=== PATIENT | male | born 1965 | race Caucasian/White ===

== ENCOUNTER 2020-08-17 02:20 | Observation (INO) | payer MEDICAID, SELFPAY ==
[~2020-08-17] VITALS: Ht 170.2 cm; Wt 78.9 kg
[~2020-08-17 02:20] MED LIST: ATOR20TA PO; FURO-572 PO; METO25TE2 PO; RIVA20TA PO
[2020-08-17 02:25] VITALS: BP 152/116
[2020-08-17 04:53] LABS: BASOPHILS % (AUTO) 0.4 % (0.0-2.0); EOSINOPHILS # (AUTO) 0.1 K/uL (0-0.4); EOSINOPHILS % (AUTO) 1.5 % (0.0-4.0); HEMATOCRIT 39.2 % (36-52); LYMPHOCYTES # (AUTO) 2.3 K/uL (2.0-11.5); MEAN CORPUSCULAR HEMOGLOBIN 29 pg (27-31); MEAN CORPUSCULAR HGB CONC 33 g/dL (33-37); MEAN CORPUSCULAR VOLUME 86.3 fL (80-94); MONOCYTES # (AUTO) 0.3 K/uL (0.8-1.0); MONOCYTES % (AUTO) 3.6 % (1.7-9.3); NEUTROPHILS # (AUTO) 6.8 K/uL (1.8-7.7); NEUTROPHILS % (AUTO) 70.5 % (42.2-75.2); PLATELET COUNT (AUTO) 285 K/uL (140-450); RED BLOOD CELL COUNT(AUTO) 4.54 MIL/uL (4.20-6.10); RED CELL DISTRIBUTION WIDTH 16.5 % (11.6-13.7); WHITE BLOOD COUNT (AUTO) 9.6 K/uL (4.8-10.8)
[2020-08-17 05:19] LABS: PROTHROMBIN TIME 10.7 secs (10.8-13.4)
[2020-08-17 05:20] LABS: ALBUMIN 3.5 g/dL (3.4-5.0); CARBON DIOXIDE 22.5 mmol/L (21-32); CREATININE 0.9 mg/dL (0.6-1.3); POTASSIUM 4.5 mmol/L (3.5-5.1); TOTAL BILIRUBIN 0.8 mg/dL (0.0-1.0)
[2020-08-17] MEDS ORDERED: FUROSEMIDE 40 MG/4 ML VIAL IVP ONE (05:45)
[2020-08-17] MEDS ORDERED: ASPIRIN 325 MG TAB PO ONE (05:45)
[2020-08-17] MEDS ORDERED: ONDANSETRON 4 MG/2 ML VIAL IVP ONE (05:45)
[2020-08-17 08:10] VITALS: BP 147/102
[2020-08-17] MEDS ORDERED: POTASSIUM CHLORIDE 10 MEQ TABER PO PRN (10:30)
[2020-08-17] MEDS ORDERED: ACETAMINOPHEN 325 MG TAB PO PRN (10:30)
[2020-08-17] MEDS ORDERED: ONDANSETRON 4 MG/2 ML VIAL IM/IVP PRN (10:30)
[2020-08-17] MEDS ORDERED: DOCUSATE SODIUM 100 MG GELCAP PO PRN (10:30)
[2020-08-17] MEDS ORDERED: HYDROcodone/APAP 7.5/325 MG 1 TAB PO PRN (10:30)
[2020-08-17 11:10] LABS: MAGNESIUM 2.1 mg/dL (1.8-2.4); PHOSPHORUS 4.4 mg/dL (2.5-4.9)
[2020-08-17 12:00] VITALS: BP 143/92
[2020-08-17 16:00] VITALS: BP 126/85
[2020-08-17 20:00] VITALS: BP 151/103
[2020-08-17] MEDS ORDERED: ATORVASTATIN 20 MG TAB PO SCH (21:00)
[2020-08-18] VITALS: BP 142/101
[2020-08-18 04:00] VITALS: BP 136/94
[2020-08-18 06:24] LABS: ANION GAP 11.3 (8-16); CARBON DIOXIDE 25.7 mmol/L (21-32)
[2020-08-18 06:32] LABS: BASOPHILS % (AUTO) 0.3 % (0.0-2.0); EOSINOPHILS # (AUTO) 0.1 K/uL (0-0.4); HEMATOCRIT 40.5 % (36-52); HEMOGLOBIN 13.2 g/dL (12.0-18.0); LYMPHOCYTES # (AUTO) 3.3 K/uL (2.0-11.5); LYMPHOCYTES % (AUTO) 29.3 % (20.5-51.1); MEAN CORPUSCULAR HEMOGLOBIN 28 pg (27-31); MEAN CORPUSCULAR HGB CONC 33 g/dL (33-37); MEAN CORPUSCULAR VOLUME 87.1 fL (80-94); MONOCYTES # (AUTO) 0.5 K/uL (0.8-1.0); NEUTROPHILS # (AUTO) 7.3 K/uL (1.8-7.7); NEUTROPHILS % (AUTO) 65.4 % (42.2-75.2); PLATELET COUNT (AUTO) 281 K/uL (140-450); RED BLOOD CELL COUNT(AUTO) 4.65 MIL/uL (4.20-6.10); RED CELL DISTRIBUTION WIDTH 15.9 % (11.6-13.7); WHITE BLOOD COUNT (AUTO) 11.2 K/uL (4.8-10.8)
[2020-08-18 08:00] VITALS: BP 138/110
[2020-08-18] MEDS ORDERED: FUROSEMIDE 40 MG/4 ML VIAL IVP SCH (09:00)
[2020-08-18] MEDS ORDERED: RIVAROXABAN 10 MG TAB PO SCH (09:00)
[2020-08-18] MEDS ORDERED: METOPROLOL SUCCINATE 50 MG TABER PO SCH (09:00)
[2020-08-18 12:00] VITALS: BP 134/80
[2020-08-18] MEDS ORDERED: RIVA20TA PO (15:56)
[2020-08-18] MEDS ORDERED: METO25TE2 PO (15:56)
[2020-08-18] MEDS ORDERED: ATOR20TA PO (15:56)
[2020-08-18] MEDS ORDERED: FURO-572 PO (15:56)
[2020-08-18 16:00] VITALS: BP 129/89
[2020-08-18 16:28] LABS: BARBITURATE, URINE NEGATIVE ng/ml (NEG <=200)
[2020-08-18 16:29] LABS: BENZODIAZEPINE, URINE NEGATIVE ng/mL (NEG <=200); CANNABINOID, URINE NEGATIVE ng/mL (NEG <=50); COCAINE, URINE NEGATIVE ng/mL (NEG <=300); OPIATE, URINE NEGATIVE ng/mL (NEG <=2000); PHENCYCLIDINE SCREEN,URINE NEGATIVE ng/mL (NEG <=25)
== END 2020-08-18 18:15 | disposition home or self-care (01) ==
LOC: MED 02:20 → MTU 06:58
PROVIDERS: ADMIT Emergency Medicine; ATTEND Emergency Medicine
DX: I21.4 Non-ST elevation (NSTEMI) myocardial infarction (principal); Z20.822 Contact with and (suspected) exposure to COVID-19; I11.0 Hypertensive heart disease with heart failure; I50.20 Unspecified systolic (congestive) heart failure; G92 Toxic encephalopathy; E86.0 Dehydration; E83.51 Hypocalcemia; R73.9 Hyperglycemia, unspecified; F15.10 Other stimulant abuse, uncomplicated; Z91.19 Patient's noncompliance with other medical treatment and regimen; Z79.01 Long term (current) use of anticoagulants; Z79.899 Other long term (current) drug therapy
CPT/HCPCS: 36415; 71045; 80048; 80053; 80305; 83735; 83880; 84100; 84484; 85025; 85610; 85730; 87081; 87426; 96374; 96375; 96376; 99284; G0378; J1940; J2405

== ENCOUNTER 2020-12-31 21:50 | Inpatient (IN) | payer MEDICAID, SELFPAY ==
[~2020-12-31] VITALS: Ht 170.2 cm; Wt 79.4 kg
[2020-12-31 21:55] VITALS: BP 123/100
--- NOTE | 2020-12-31 21:55 | NUR ---
TO TENT AMBULATORY
[2020-12-31] MEDS ORDERED: ASPIRIN 325 MG TAB PO ONE (22:20)
[2020-12-31] MEDS ORDERED: NITROGLYCERIN 0.4 MG TAB SL ONE ×2 (22:20→23:37)
[2020-12-31 22:37] LABS: BASOPHILS # (AUTO) 0.1 K/uL (0.00-0.22); BASOPHILS % (AUTO) 0.5 % (0.0-2.0); EOSINOPHILS % (AUTO) 0.3 % (0.0-4.0); HEMATOCRIT 42.5 % (36-52); HEMOGLOBIN 13.9 g/dL (12.0-18.0); LYMPHOCYTES # (AUTO) 2.5 K/uL (2.0-11.5); MEAN CORPUSCULAR HEMOGLOBIN 29 pg (27-31); MEAN CORPUSCULAR HGB CONC 33 g/dL (33-37); MEAN CORPUSCULAR VOLUME 89.2 fL (80-94); MONOCYTES # (AUTO) 0.5 K/uL (0.8-1.0); MONOCYTES % (AUTO) 4.1 % (1.7-9.3); NEUTROPHILS % (AUTO) 76.1 % (42.2-75.2); PLATELET COUNT (AUTO) 410 K/uL (140-450); RED BLOOD CELL COUNT(AUTO) 4.77 MIL/uL (4.20-6.10); RED CELL DISTRIBUTION WIDTH 14.5 % (11.6-13.7); WHITE BLOOD COUNT (AUTO) 13.2 K/uL (4.8-10.8)
[2020-12-31 22:58] LABS: ALBUMIN 3.5 g/dL (3.4-5.0); ANION GAP 15.2 (8-16); CARBON DIOXIDE 23.6 mmol/L (21-32); CREATININE 1.2 mg/dL (0.6-1.3); POTASSIUM 3.8 mmol/L (3.5-5.1); TOTAL BILIRUBIN 1.8 mg/dL (0.0-1.0)
--- NOTE | 2020-12-31 23:10 | NUR ---
PT BIB SELF FOR C/C SOB X 4 DAYS. PT DENIES CHEST PAIN. REPORTS RECENT DX OF HEART FAILURE "A FEW MONTHS AGO." PT STATES, "THE DOCTOR SAID MY HEART IS FUNCTIONING AT LIKE 25% ONLY." PT ABLE TO TALK IN COMPLETE SENTENCES. A&O X 4. MED HX: CHF ALLERGIES: NKA
[2020-12-31] MEDS ORDERED: ASPIRIN 325 MG TAB ONE (23:37)
--- NOTE | 2020-12-31 23:56 | NUR ---
SPOKE WITH KIKE FROM [facility]. PROVIDED CLINICAL DATA REQUESTED.
[2021-01-01] MEDS ORDERED: POTASSIUM CHLORIDE 10 MEQ TABER PO PRN (01:00)
[2021-01-01] MEDS ORDERED: MORPHINE SULFATE 2 MG/ML SYR IVP PRN (01:00)
[2021-01-01] MEDS ORDERED: ACETAMINOPHEN 325 MG TAB PO PRN (01:00)
[2021-01-01] MEDS ORDERED: DOCUSATE SODIUM 100 MG GELCAP PO PRN (01:00)
[2021-01-01] MEDS ORDERED: ONDANSETRON 4 MG/2 ML VIAL IM/IVP PRN (01:00)
[2021-01-01] MEDS ORDERED: SODIUM PHOS / POTASSIUM PHOS 1 PKT PDR PO PRN (01:00)
[2021-01-01] MEDS ORDERED: NITROGLYCERIN 0.4 MG TAB SL PRN (01:00)
[2021-01-01] MEDS ORDERED: MAGNESIUM OXIDE 400 MG TAB PO PRN (01:00)
--- NOTE | 2021-01-01 01:15 | NUR ---
PT USED URINAL AT BEDSIDE. 350 CC CLEAR, YELLOW URINE.
[2021-01-01 01:21] LABS: MAGNESIUM 1.9 mg/dL (1.8-2.4); PHOSPHORUS 3.3 mg/dL (2.5-4.9)
[2021-01-01] MEDS: NACL 0.9% 1,000 ML IV SCH (01:48)
[2021-01-01 02:05] LABS: BARBITURATE, URINE NEGATIVE ng/ml (NEG <=200); BENZODIAZEPINE, URINE NEGATIVE ng/mL (NEG <=200); CANNABINOID, URINE NEGATIVE ng/mL (NEG <=50); COCAINE, URINE NEGATIVE ng/mL (NEG <=300); OPIATE, URINE NEGATIVE ng/mL (NEG <=2000); PHENCYCLIDINE SCREEN,URINE NEGATIVE ng/mL (NEG <=25)
--- NOTE | 2021-01-01 02:05 | NUR ---
Patient appears to be resting comfortably in bed, EYES CLOSED. Respirations even and unlabored. DENIES PAIN OR DISCOMFORT AT THIS TIME. LIGHTS DIMMED FOR COMFORT.
--- NOTE | 2021-01-01 02:11 | NUR ---
CRITICAL LAB RECIEVED: TROPONIN 0.237. KATHERINE DEL CID, AWAITING RESPONSE. NOTIFIED BINH RT FOR EKG, WILL COME TO BEDSIDE.
--- NOTE | 2021-01-01 02:37 | NUR ---
CALLED AND SPOKE WITH MD GONZALEZ, UPDATED REGARDING TROPONIN LEVELS. DOES NOT WANT A REPEAT EKG. NO NEW ORDERS AT THIS TIME.
--- NOTE | 2021-01-01 04:08 | NUR ---
Patient appears to be resting comfortably in bed, EYES CLOSED. Vital Signs within normal limits. Respirations even and unlabored. DENIES PAIN OR DISCOMFORT AT THIS TIME. WILL CONTINUE TO MONITOR.
[2021-01-01] MEDS ORDERED: FUROSEMIDE 40 MG/4 ML VIAL IVP SCH (04:30)
--- NOTE | 2021-01-01 05:58 | NUR ---
Patient appears to be resting comfortably in bed EYES CLOSED. Vital Signs within normal limits. Respirations even and unlabored. WILL CONTINUE TO MONITOR.
--- NOTE | 2021-01-01 06:20 | NUR ---
LAB AT BEDSIDE.
--- NOTE | 2021-01-01 06:41 | NUR ---
PROVIDED PT BEDSIDE URINAL. 200 CC CLEAR, YELLOW URINE NOTED.
[2021-01-01 06:53] LABS: BASOPHILS % (AUTO) 0.4 % (0.0-2.0); EOSINOPHILS # (AUTO) 0.1 K/uL (0-0.4); EOSINOPHILS % (AUTO) 0.5 % (0.0-4.0); HEMATOCRIT 39.5 % (36-52); LYMPHOCYTES # (AUTO) 2.3 K/uL (2.0-11.5); LYMPHOCYTES % (AUTO) 20.2 % (20.5-51.1); MEAN CORPUSCULAR HEMOGLOBIN 29 pg (27-31); MEAN CORPUSCULAR HGB CONC 33 g/dL (33-37); MEAN CORPUSCULAR VOLUME 88.3 fL (80-94); MONOCYTES # (AUTO) 0.6 K/uL (0.8-1.0); MONOCYTES % (AUTO) 5.4 % (1.7-9.3); NEUTROPHILS # (AUTO) 8.5 K/uL (1.8-7.7); NEUTROPHILS % (AUTO) 73.5 % (42.2-75.2); PLATELET COUNT (AUTO) 350 K/uL (140-450); RED BLOOD CELL COUNT(AUTO) 4.47 MIL/uL (4.20-6.10); RED CELL DISTRIBUTION WIDTH 14.6 % (11.6-13.7); WHITE BLOOD COUNT (AUTO) 11.6 K/uL (4.8-10.8)
--- NOTE | 2021-01-01 07:17 | NUR ---
REPORT GIVEN TO KALYN WALTERS FOR CONTINUITY OF CARE.
--- NOTE | 2021-01-01 08:03 | NUR ---
Patient given breakfast tray, noted sitting up in bed eating. All needs met at this time.
[2021-01-01] MEDS ORDERED: FUROSEMIDE 20 MG TAB PO SCH (09:00)
[2021-01-01] MEDS: ASPIRIN 81 MG TAB.CHEW PO SCH (09:10)
[2021-01-01] MEDS: lisinopriL 5 MG TAB PO SCH (09:11)
[2021-01-01] MEDS: PANTOPRAZOLE 40 MG TABEC PO SCH (09:11)
[2021-01-01] MEDS: RIVAROXABAN 10 MG TAB PO SCH (09:31)
--- NOTE | 2021-01-01 10:05 | NUR ---
Patient appears to be resting comfortably in bed with eyes closed. Respirations even and unlabored. Denies pain or discomfort at this time, all needs met. Lights dimmed for comfort.
[2021-01-01 11:29] LABS: ANION GAP 16.8 (8-16); CREATININE 1.1 mg/dL (0.6-1.3); POTASSIUM 3.8 mmol/L (3.5-5.1)
--- NOTE | 2021-01-01 13:30 | NUR ---
Patient provided with lunch tray, patient sitting up right in bed eating. All needs met at this time.
--- NOTE | 2021-01-01 18:00 | NUR ---
RECEIVED REPORT FROM ER NURSE OVER THE PHONE AWAITING FOR PATIENT ARRIVAL.
--- NOTE | 2021-01-01 18:00 | NUR ---
Patient will be admitted to care of Dr. Escobedo. Admited to TELE. Will go to room 104A. Belongings list completed. Report to Cuong MCCAIN.
[2021-01-01 18:10] VITALS: BP 112/81
--- NOTE | 2021-01-01 18:10 | NUR ---
RECEIVED PATIENT FROM ER NURSE VIA ALEJANDRA. PT ADMITTED FOR N-STEMI. PT IS AOX4, ABLE TO MAKE NEEDS KNOWN. RESPIRATIONS EVEN AND UNLABORED. NO S/S OF RESPIRATORY DISTRESS NOTED. SKIN IS WARM, DRY, AND INTACT. IV SITE ON RAC 20 G INFUSING FLUIDS WELL. INTACT AND PATENT. ABD SOFT, FLAT, AND NON-TENDER. BOWEL SOUNDS ACTIVE IN ALL QUADRANTS. COMPLAINS OF 4/10 CHEST PAIN BUT IT IS TOLERABLE. PLAN OF CARE DISCUSSED. SAFETY PRECAUTIONS IN PLACE. CALL LIGHT WITHIN REACH. WILL CONTINUE TO MONITOR.
--- NOTE | 2021-01-01 19:20 | NUR ---
ENDORSED TO CONTRACTS ADVISOR NURSE FOR CONTINUITY OF CARE. PT IS STABLE.
--- NOTE | 2021-01-01 19:21 | NUR ---
RECEIVED BEDSIDE REPORT FROM DAY RN. PT IS AAOX4 IS AMBULATORY AND ABLE TO MAKE NEEDS KNOWN. RESPIRATIONS ARE EQUAL AND UNLABORED ON ROOM AIR. DX CHF EXACERBATION. PT REPORTS CP STARTED YESTERDAY CURRENTLY TOLERABLE . NO EDEMA NOTED. PT HX METH ABUSE. ECHO 05/2020 EF 10-15%. ECHO PENDING FOR TOMORROW. IV ON RAC NS INFUSING AT 20ML/H. SKIN IS INTACT. POC DISCUSSED WITH PATIENT. CALL LIGHT IS WITHIN REACH. WILL CONTINUE TO MONITOR.
--- NOTE | 2021-01-01 19:35 | NUR ---
RECEIVED BEDSIDE ENDORSEMENT FROM AM SHIFT RN. PT IS A&OX4, NS @ 20 ML/HR, CARDIAC DIET, RAC 20G , NO SIGNS OF DISTRESS AT THIS MOMENT, SAFETY MEASURES IN PLACE, ON ROOM AIR, PT STATES CHEST PAIN IS TOLERABLE, TROPONIN TRENDING DOWN @ 0.181, WILL CONTINUE TO MONITOR, CALL LIGHT WITHIN REACH.
[2021-01-01 20:00] VITALS: BP 111/85
[2021-01-01] MEDS ORDERED: ATORVASTATIN 20 MG TAB PO SCH (21:00)
[2021-01-01 21:52] LABS: APPEARANCE,URINE CLEAR (CLEAR); BILIRUBIN,URINE NEGATIVE (NEGATIVE); BLOOD, URINE NEGATIVE (NEGATIVE); COLOR,URINE YELLOW (YELLOW); LEUKOCYTE ESTERASE ,URINE NEGATIVE (NEGATIVE); NITRITE, URINE NEGATIVE (NEGATIVE); PH,URINE 5.5 (5.0-9.0); UGLUCOSE NEGATIVE (NEGATIVE)
--- NOTE | 2021-01-01 22:52 | NUR ---
PATIENT IS IN BED, KEPT COMFORTABLE, ON ROOM AIR, SAFETY MEASURES IN PLACE, CALL LIGHT WITHIN REACH, DENIES PAIN AT THE MOMENT, WILL CONTINUE TO MONITOR, AND NOTIFY MD NEEDED.
[2021-01-02] VITALS: BP 116/86
--- NOTE | 2021-01-02 00:23 | NUR ---
PATIENT IN BED, KEPT COMFORTABLE, DENIES PAIN, VITAL SIGNS STABLE TEMP: 97.3, O2 SAT 99%, HR 84, BP 116/86, RR 20, CALL LIGHT WITHIN REACH, WILL CONTINUE TO MONITOR PT, SAFETY MEASURES IN PLACE.
[2021-01-02] MEDS: NACL 0.9% 1,000 ML IV SCH (01:00)
--- NOTE | 2021-01-02 02:17 | NUR ---
ROUNDS MADE. PT OBSERVED RESTING IN BED APPEARS TO BE ASLEEP. CHEST RISE AND FALL NOTED. CALL LIGHT WITHIN REACH. WILL CONTINUE TO MONITOR.
[2021-01-02 04:00] VITALS: BP 116/89
--- NOTE | 2021-01-02 04:00 | NUR ---
VITAL SIGNS ARE WITHIN NORMAL LIMITS. ALL NEEDS MET. CALL LIGHT IS WITHIN REACH.
--- NOTE | 2021-01-02 05:00 | NUR ---
ROUNDS MADE. PT APPEARS TO BE ASLEEP. CHEST RISE AND FALL NOTED. CALL LIGHT IS WITHIN REACH.
[2021-01-02 07:27] LABS: BASOPHILS % (AUTO) 0.4 % (0.0-2.0); EOSINOPHILS # (AUTO) 0.1 K/uL (0-0.4); EOSINOPHILS % (AUTO) 1.1 % (0.0-4.0); HEMATOCRIT 39.9 % (36-52); HEMOGLOBIN 13.2 g/dL (12.0-18.0); LYMPHOCYTES # (AUTO) 2.6 K/uL (2.0-11.5); LYMPHOCYTES % (AUTO) 24.1 % (20.5-51.1); MEAN CORPUSCULAR HEMOGLOBIN 29 pg (27-31); MEAN CORPUSCULAR HGB CONC 33 g/dL (33-37); MEAN CORPUSCULAR VOLUME 88.4 fL (80-94); MONOCYTES # (AUTO) 0.6 K/uL (0.8-1.0); MONOCYTES % (AUTO) 5.7 % (1.7-9.3); NEUTROPHILS # (AUTO) 7.5 K/uL (1.8-7.7); NEUTROPHILS % (AUTO) 68.7 % (42.2-75.2); PLATELET COUNT (AUTO) 329 K/uL (140-450); RED BLOOD CELL COUNT(AUTO) 4.52 MIL/uL (4.20-6.10); RED CELL DISTRIBUTION WIDTH 14.4 % (11.6-13.7); WHITE BLOOD COUNT (AUTO) 10.9 K/uL (4.8-10.8)
--- NOTE | 2021-01-02 07:30 | NUR ---
GAVE SHIFT REPORT TO AM SHIFT RN, PT ENDORSED IN STABLE CONDITION.
--- NOTE | 2021-01-02 07:32 | NUR ---
RECEIVED PATIENT REPORT FOR CONTINUITY OF CARE. PT IS AOX4, ABLE TO MAKE NEEDS KNOWN. RESPIRATIONS EVEN AND UNLABORED. NO S/S OF RESPIRATORY DISTRESS NOTED. SKIN IS WARM, DRY, AND INTACT. IV SITE ON RAC 20 G INFUSING FLUIDS WELL. INTACT AND PATENT. DENIES PAIN AT THE MOMENT. PLAN OF CARE DISCUSSED. SAFETY PRECAUTIONS IN PLACE. CALL LIGHT WITHIN REACH. WILL CONTINUE TO MONITOR.
[2021-01-02 08:00] VITALS: BP 133/97
[2021-01-02 08:47] LABS: ANION GAP 15.2 (8-16); CARBON DIOXIDE 23.4 mmol/L (21-32); CREATININE 1.1 mg/dL (0.6-1.3); POTASSIUM 3.6 mmol/L (3.5-5.1)
[2021-01-02] MEDS: ASPIRIN 81 MG TAB.CHEW PO SCH (09:14)
[2021-01-02] MEDS: lisinopriL 5 MG TAB PO SCH (09:14)
[2021-01-02] MEDS: RIVAROXABAN 10 MG TAB PO SCH (09:22)
[2021-01-02] MEDS: FUROSEMIDE 40 MG/4 ML VIAL IVP SCH (09:22)
[2021-01-02] MEDS: PANTOPRAZOLE 40 MG TABEC PO SCH (09:22)
--- NOTE | 2021-01-02 09:50 | NUR ---
ALL SCHEDULED MEDS GIVEN. PT IS STABLE. NO DISTRESS NOTED. WILL CONTINUE TO MONITOR.
--- NOTE | 2021-01-02 11:45 | NUR ---
CHECKED ON PATIENT. PT IS STABLE. NO DISTRESS NOTED. WILL CONTINUE TO MONITOR.
[2021-01-02 12:00] VITALS: BP 121/94
--- NOTE | 2021-01-02 13:30 | NUR ---
CHECKED ON PATIENT. PT IS STABLE. NO S/S DISTRESS NOTED. WILL CONTINUE TO MONITOR.
--- NOTE | 2021-01-02 15:45 | NUR ---
CHECKED ON PATIENT. PT IS STABLE. NO DISTRESS NOTED. WILL CONTINUE TO MONITOR.
[2021-01-02 16:00] VITALS: BP 117/88
--- NOTE | 2021-01-02 17:50 | NUR ---
CHECKED ON PATIENT. PT IS ASLEEP. NO DISTRESS NOTED. WILL CONTINUE TO MONITOR.
--- NOTE | 2021-01-02 19:40 | NUR ---
ENDORSED TO FEATHEREDGER AND REDUCER MACHINE NURSE FOR CONTINUITY OF CARE. PT IS STABLE.
--- NOTE | 2021-01-02 19:45 | NUR ---
RECEIVED REPORT FROM DAY SHIFT RN PT AAOX4 FOLLOWING COMMANDS. PT AMB IN ROOM, DENIES CP/SOB, NSR ON MONITOR. PALPABLE PULSES TO PERIPHERAL EXTREMITIES. LUNGS CLEAR TO AUSCULTATION. DIMINISHED @ BASES. ABD SOFT NON DISTENDED. ACTIVE BOWEL SOUNDS. DENIES N/V/D. PT VOIDING IN URINAL. SKIN INTACT. IV TO R FA IN PLACE PATENT. BED LOCKED IN LOWEST POSITION. SAFETY PRECAUTIONS IN PLACE. CALL LIGHT WITHIN REACH.
[2021-01-02 20:00] VITALS: BP 123/50
[2021-01-02] MEDS: HYDROcodone/APAP 5/325 MG 1 TAB TAB PO PRN (21:02)
[2021-01-03] VITALS: BP 119/85
[2021-01-03] MEDS: NACL 0.9% 1,000 ML IV SCH (01:00)
--- NOTE | 2021-01-03 01:17 | NUR ---
PT HAS EYES CLOSED; AROUSABLE, NO S/S OF DISTRESS NOTED. WILL CONTINUE TO OBSERVE.
--- NOTE | 2021-01-03 03:01 | NUR ---
PT HAS EYES CLOSED; AROUSABLE DENIES PAIN. NO S/S OF ACUTE DISTRESS. WILL CONTINUE TO OBSERVE
[2021-01-03 04:00] VITALS: BP 109/80
--- NOTE | 2021-01-03 05:41 | NUR ---
PT HAS EYES CLOSED; AROUSABLE DENIES PAIN. WILL CONTINUE TO OBSERVE
[2021-01-03 07:07] LABS: ANION GAP 8.5 (8-16); CARBON DIOXIDE 30.1 mmol/L (21-32); CREATININE 1.1 mg/dL (0.6-1.3); POTASSIUM 3.6 mmol/L (3.5-5.1)
[2021-01-03 07:19] LABS: BASOPHILS % (AUTO) 0.4 % (0.0-2.0); EOSINOPHILS # (AUTO) 0.2 K/uL (0-0.4); EOSINOPHILS % (AUTO) 2.5 % (0.0-4.0); HEMATOCRIT 40.1 % (36-52); HEMOGLOBIN 13.2 g/dL (12.0-18.0); LYMPHOCYTES # (AUTO) 2.9 K/uL (2.0-11.5); MEAN CORPUSCULAR HEMOGLOBIN 29 pg (27-31); MEAN CORPUSCULAR HGB CONC 33 g/dL (33-37); MEAN CORPUSCULAR VOLUME 87.7 fL (80-94); MONOCYTES # (AUTO) 0.5 K/uL (0.8-1.0); MONOCYTES % (AUTO) 5.6 % (1.7-9.3); NEUTROPHILS # (AUTO) 5.9 K/uL (1.8-7.7); NEUTROPHILS % (AUTO) 61.5 % (42.2-75.2); PLATELET COUNT (AUTO) 301 K/uL (140-450); RED BLOOD CELL COUNT(AUTO) 4.57 MIL/uL (4.20-6.10); RED CELL DISTRIBUTION WIDTH 14.7 % (11.6-13.7); WHITE BLOOD COUNT (AUTO) 9.6 K/uL (4.8-10.8)
--- NOTE | 2021-01-03 07:31 | NUR ---
REPORT GIVEN TO DAY SHIFT FOR CONTINUITY OF CARE
[2021-01-03 08:00] VITALS: BP 125/97
--- NOTE | 2021-01-03 08:00 | NUR ---
RECEIVED REPORT FROM GLOVE CUTTER FOR CONTINUITY OF CARE. INITIAL ASSESSMENT INITIATED. PATIENT ASLEEP BUT AROUSABLE, NOT IN DISTRESS NOTED. WITH IVF ON GOING AND INFUSING WELL. ON MONITOR SHOWS SR. DENIES PAIN AT THIS TIME. NEEDS ATTENDED. WILL CONTINUE TO MONITOR.
[2021-01-03] MEDS: ASPIRIN 81 MG TAB.CHEW PO SCH (08:37)
[2021-01-03] MEDS: lisinopriL 5 MG TAB PO SCH (08:38)
[2021-01-03] MEDS: FUROSEMIDE 40 MG/4 ML VIAL IVP SCH (08:38)
[2021-01-03] MEDS: PANTOPRAZOLE 40 MG TABEC PO SCH (08:38)
[2021-01-03] MEDS: RIVAROXABAN 10 MG TAB PO SCH (08:40)
[2021-01-03 12:00] VITALS: BP 106/83
[2021-01-03 16:00] VITALS: BP 109/80
--- NOTE | 2021-01-03 19:00 | NUR ---
REPORT GIVEN AT BEDSIDE TO THE NIGHT NURSE FOR CONTINUITY OF CARE. PATIENT IN STABLE CONDITION.
[2021-01-03 20:39] VITALS: BP 113/70
--- NOTE | 2021-01-03 22:08 | NUR ---
I RECEIVED PT IN BED FROM OUT GOING NURSE , HE A LERT ORIENTED , DENIES PAIN , VSS , ON RA CLEAR LUNGS , SL INTACT , SKIN INTACT .
[2021-01-04] VITALS (24 sets, daily range): BP systolic 69–146; BP diastolic 47–104
--- NOTE | 2021-01-04 01:01 | NUR ---
PT IS SLEEPING WELL NO S/S DISCOMFORT
[2021-01-04] MEDS: NACL 0.9% 1,000 ML IV SCH (01:31)
[2021-01-04] MEDS: HYDROcodone/APAP 5/325 MG 1 TAB TAB PO PRN (02:36)
--- NOTE | 2021-01-04 06:23 | NUR ---
PT SLEPT WELL VSS .
--- NOTE | 2021-01-04 06:43 | NUR ---
CARDIOPULMONARY ARREST Rafa GERBER, SLEDGER ATTENDING
--- NOTE | 2021-01-04 06:50 | NUR ---
INTUBATION ASSIST PATIENT SUCCESSFULLY INTUBATED BY DR. AILEEN VELOZ WITH AN ENDOTRACHEAL TUBE #8.0 SECURED AT 22cm TEETH/GUM LINE WITH ANCHOR FAST CUFF PRESSURE INJECTED WITH 8cc AIR VIA A 10cc SYRINGE PLACEMENT CONFIRMATION VIA CO2 DETECTOR (YELLOW) AUSCULTATION BT FOREMENTIONED ERMD TO BILATERAL LUNGS APEX TO MID AND ABDOMINAL CXR TO FOLLOW
--- NOTE | 2021-01-04 06:58 | NUR ---
TRANSFERRED TO ICU-7 SUPPLEMENTAL OXYGEN AT 15 LPM VIA E-TANK (ADEQUATE PSI) TO AMBU BAG/ENDOTRACHEAL TUBE BAG DEPRESSION EVERY SIX SECONDS TOLERATED TRANSFER WELL WITHOUT ADVERSE REACTIONS NOTED
--- NOTE | 2021-01-04 07:05 | NUR ---
AT 0630 PT COULD NOT BREATH HE WAS CHOKING AND HE TURNED ON HIS CALL LIGHT SO I WENT THE ROOM AND I FOUD HIMCHOCKINH HOLDING HIS NECK I I RAN AND GOT A NC CANNULLA TUBING AND PUT HIM ON O2 AND I CALLED [facility]PONSE , AND A DOCTOR WAS IN THE [place]NTIVER[place] WAY COMING FROM A CODE [facility]UE AND HE WENT IN AND HE STAA RTED COMPRESSIONS A TEAM BLUE CAME AND STARTED RESURSTATING HIM UNTI HE GOT A PULSE AND HE WAS TRANSFFERED TO ICU . I NOTIFIED HIS HARMAN CEDEÑO AT [phone] AND THE CHARGE NURSE NOTIFIED THE DOCTOR
[2021-01-04] MEDS ORDERED: NOREPINEPHRINE 4 MG/4 ML VIAL IV ONE (07:18)
--- NOTE | 2021-01-04 07:20 | NUR ---
REPORT GIVEN TO ICU NURSE
[2021-01-04 07:23] LABS: BASOPHILS % (AUTO) 0.3 % (0.0-2.0); EOSINOPHILS # (AUTO) 0.2 K/uL (0-0.4); HEMATOCRIT 42.8 % (36-52); HEMOGLOBIN 14.2 g/dL (12.0-18.0); LYMPHOCYTES % (AUTO) 29.1 % (20.5-51.1); MEAN CORPUSCULAR HEMOGLOBIN 29 pg (27-31); MEAN CORPUSCULAR HGB CONC 33 g/dL (33-37); MEAN CORPUSCULAR VOLUME 87.4 fL (80-94); MONOCYTES # (AUTO) 0.6 K/uL (0.8-1.0); MONOCYTES % (AUTO) 5.7 % (1.7-9.3); NEUTROPHILS # (AUTO) 6.5 K/uL (1.8-7.7); NEUTROPHILS % (AUTO) 62.9 % (42.2-75.2); PLATELET COUNT (AUTO) 381 K/uL (140-450); RED BLOOD CELL COUNT(AUTO) 4.89 MIL/uL (4.20-6.10); RED CELL DISTRIBUTION WIDTH 14.4 % (11.6-13.7); WHITE BLOOD COUNT (AUTO) 10.3 K/uL (4.8-10.8)
[2021-01-04 07:28] LABS: ANION GAP 8.5 (8-16); CARBON DIOXIDE 32.1 mmol/L (21-32); CREATININE 1.1 mg/dL (0.6-1.3); POTASSIUM 3.6 mmol/L (3.5-5.1)
[2021-01-04] MEDS: PROPOFOL 1000 MG/100 ML PREMIX 100 ML IV PRN ×4 (07:30→18:39)
--- NOTE | 2021-01-04 07:30 | NUR ---
RECEIVED REPORT FROM TELE NURSE FOR CONTINUITY OF CARE. ETT TO VENT. ETT SIZE 8, 25CM AT THE LIP. ACVC 100% TV 450 R 18 PEEP 5.
[2021-01-04] MEDS ORDERED: NOREPINEPHRINE 4 MG in DEXTROSE 5% 250 ML IV PRN (07:35)
--- NOTE | 2021-01-04 07:45 | NUR ---
SBP<90, NOTIFIED DR STEWART. ORDERED PROPOFOL, FENTANYL AND VERSED DRIPS FOR SEDATION NEEDED. LEVOPHED FOR BLOOD PRESSURE SUPPORT. INSERT SANDOVAL, INSERT OGT, INSERT PICC
--- NOTE | 2021-01-04 08:00 | NUR ---
OGT INSERTED, PENDING CXR CONFIRMATION. DIFFICULTY INSERTING SANDOVAL, NOTIFIED DR STEWART. ORDERED UROLOGY CONSULT WITH DR GRULLON
[2021-01-04] MEDS ORDERED: PANTOPRAZOLE 40 MG INJ VIAL ONE (08:09)
[2021-01-04] MEDS ORDERED: fentaNYL citrate 1 MG in NACL 0.9% 80 ML IV PRN ×2 (08:40→10:15)
--- NOTE | 2021-01-04 08:50 | NUR ---
OGT PLACEMENT CONFIRMED BY CXR. DUE MEDS GIVEN
--- NOTE | 2021-01-04 08:55 | NUR ---
PT'S BROTHER SWAPNA ADLER ([phone])
[2021-01-04] MEDS: fentaNYL citrate 1 MG in NACL 0.9% 80 ML IV PRN ×2 (09:00→14:45)
[2021-01-04] MEDS: ASPIRIN 81 MG TAB.CHEW PO SCH (09:00)
[2021-01-04] MEDS: RIVAROXABAN 10 MG TAB PO SCH (09:00)
[2021-01-04] MEDS: lisinopriL 5 MG TAB PO SCH (09:00)
[2021-01-04] MEDS: PANTOPRAZOLE 40 MG INJ VIAL IVP SCH (09:00)
[2021-01-04] MEDS: FUROSEMIDE 40 MG/4 ML VIAL IVP SCH (09:00)
[2021-01-04] MEDS ORDERED: MIDAZOLAM MDV 50 MG in NACL 0.9% 40 ML IV PRN (09:35)
[2021-01-04] MEDS ORDERED: LORazepam 2 MG/ML VIAL ONE (09:37)
--- NOTE | 2021-01-04 09:45 | NUR ---
DR STEWART AT BEDSIDE FOR EVAL, PT RESTLESS, FIGHTING VENTILATOR, ONE TIME DOSE ATIVAN ORDER RECIEVED FROM DR STEWART
[2021-01-04] MEDS ORDERED: MIDAZOLAM MDV 100 MG in NACL 0.9% 80 ML IV PRN (09:55)
--- NOTE | 2021-01-04 09:58 | NUR ---
SEDATED RESTING COMFORTABLY EQUAL CHEST RISE DEEP TRACHEAL SUCTION FOR LARGE SEMI THICK YELLOW SECRETIONS SPUTUM CULTURE SPECIMEN COLLECTED FOR VAP PROTOCOL AIRWAY PATENT AIRWAY PATENT ABG SAMPLE REPORT REVIEWED DECREASED RATE TO 16 BPM; DECREASED FIO2 TO 50% ORNAMENTAL METAL WORKER APPRENTICE TO MONITOR TO KEEP SATURATION GREATER THAN 94% KIERRA/RN NOTIFIED
--- NOTE | 2021-01-04 10:00 | NUR ---
SEEN BY DR GRULLON. INSERTED 16FR FC VIA GUIDEWIRE. DRAING CLEAR YELLOW URINE
--- NOTE | 2021-01-04 10:20 | NUR ---
PT'S MOTHER ON THE PHONE (HOWARD Rivera [phone]), PT CONDITION UPDATED
--- NOTE | 2021-01-04 11:38 | NUR ---
SATURATION 100% ON FIO2 OF 500% PEEP 5cmH2O TITRATED FIO2 TO 40% KIERRA/KALYN NOTIFIED Addendum: 01/04/21 at 1206 by Chintan Croft RT 500% = 50%
--- NOTE | 2021-01-04 12:57 | NUR ---
PT RESTING IN BED, NO RESTLESSNESS, NO SOB, FLACC 0
--- NOTE | 2021-01-04 13:39 | NUR ---
SEDATED NO DISTRESS NOTED EQUAL CHEST RISE AIRWAY PATENT SATURATION 100% ON FIO2 OF 40% PEEP 5cmH2O TITRATED FIO2 TO 35% KIERRA/RN NOTIFIED
--- NOTE | 2021-01-04 15:00 | NUR ---
SEEN BY DR STEVENS
--- NOTE | 2021-01-04 16:53 | NUR ---
RASS-3, FLACC 0, NO RESPIRATORY DISTRESS
--- NOTE | 2021-01-04 17:30 | NUR ---
TOOK PT TO HEAD CT WITH RT AND TECH
--- NOTE | 2021-01-04 18:00 | NUR ---
PT BACK ON UNIT, VSS, NO DISTRESS
--- NOTE | 2021-01-04 18:25 | NUR ---
PICC LINE INSERTED. CONFIRMED PLACEMENT BY CXR
--- NOTE | 2021-01-04 19:30 | NUR ---
RECEIVED PATIENT FROM AM SHIFT NURSE FOR CONTINUITY OF CARE. RASS -3. OGT NOTED. ETT TO VENT. RESPIRATIONS EVEN, UNLABORED. NO S/S RESPIRATORY DISTRESS. O2 SAT 100%. S1/S2 AUSCULTATED. FLACC 0. SKIN WARM, DRY. SALINE LOCK TO RIGHT FOREARM 20G PATENT/INTACT. SALINE LOCK TO LEFT AC 20G PATENT/INTACT. RIGHT UPPER ARM PICC NOTED, INFUSING FENTANYL, IV FLUIDS AND PROPOFOL. ABDOMEN SOFT, NONTENDER, NONDISTENDED. BOWEL SOUNDS ACTIVE x4 QUADRANTS. SANDOVAL CATHETER PATENT WITH DARK YELLOW URINE DRAINING TO GRAVITY. PLAN OF CARE DISCUSSED. SAFETY PRECAUTIONS IN PLACE.
[2021-01-04] MEDS: PIPERACILLIN/TAZOBACTAM 3.375 GM in DEXTROSE 5% 50 ML IV SCH (20:13)
--- NOTE | 2021-01-04 21:30 | NUR ---
DUE MEDS GIVEN. NO S/S RESPIRATORY DISTRESS. FLACC 0. PATIENT IS CLEAN/DRY. CLOSE MONITORING BY ALL STAFF.
--- NOTE | 2021-01-04 23:32 | NUR ---
NO S/S RESPIRATORY DISTRESS. FLACC 0. PATIENT IS CLEAN/DRY. CLOSE MONITORING BY ALL STAFF. ISOLATION PRECAUTIONS OBSERVED.
[2021-01-05] VITALS (29 sets, daily range): BP systolic 92–156; BP diastolic 51–95
[2021-01-05] MEDS: NACL 0.9% 1,000 ML IV SCH (01:00)
--- NOTE | 2021-01-05 01:44 | NUR ---
VAP ORAL CARE RENDERED.
[2021-01-05] MEDS: PROPOFOL 1000 MG/100 ML PREMIX 100 ML IV PRN ×3 (02:46→18:25)
[2021-01-05] MEDS: fentaNYL citrate 1 MG in NACL 0.9% 80 ML IV PRN ×2 (02:46→13:48)
--- NOTE | 2021-01-05 03:24 | NUR ---
TURNED AND REPOSITIONED. NO S/S RESPIRATORY DISTRESS. FLACC 0. PATIENT IS CLEAN/DRY. CLOSE MONITORING BY ALL STAFF.
[2021-01-05] MEDS: PIPERACILLIN/TAZOBACTAM 3.375 GM in DEXTROSE 5% 50 ML IV SCH ×3 (04:37→20:09)
--- NOTE | 2021-01-05 05:12 | NUR ---
ALL NEEDS ANTICIPATED AND MET. NO S/S RESPIRATORY DISTRESS. FLACC 0. PATIENT IS CLEAN/DRY. CLOSE MONITORING BY ALL STAFF.
[2021-01-05 06:34] LABS: BASOPHILS # (AUTO) 0.1 K/uL (0.00-0.22); BASOPHILS % (AUTO) 0.6 % (0.0-2.0); EOSINOPHILS # (AUTO) 0.1 K/uL (0-0.4); EOSINOPHILS % (AUTO) 0.5 % (0.0-4.0); HEMATOCRIT 41.1 % (36-52); HEMOGLOBIN 13.4 g/dL (12.0-18.0); LYMPHOCYTES # (AUTO) 1.6 K/uL (2.0-11.5); LYMPHOCYTES % (AUTO) 13.1 % (20.5-51.1); MEAN CORPUSCULAR HEMOGLOBIN 29 pg (27-31); MEAN CORPUSCULAR HGB CONC 33 g/dL (33-37); MEAN CORPUSCULAR VOLUME 87.5 fL (80-94); MONOCYTES # (AUTO) 0.7 K/uL (0.8-1.0); MONOCYTES % (AUTO) 5.8 % (1.7-9.3); NEUTROPHILS # (AUTO) 9.9 K/uL (1.8-7.7); PLATELET COUNT (AUTO) 303 K/uL (140-450); RED CELL DISTRIBUTION WIDTH 14.9 % (11.6-13.7); WHITE BLOOD COUNT (AUTO) 12.4 K/uL (4.8-10.8)
[2021-01-05 07:23] LABS: MAGNESIUM 1.8 mg/dL (1.8-2.4); PHOSPHORUS 3.7 mg/dL (2.5-4.9)
[2021-01-05 07:32] LABS: ANION GAP 10.4 (8-16); CARBON DIOXIDE 31.8 mmol/L (21-32); CREATININE 1.2 mg/dL (0.6-1.3); POTASSIUM 3.2 mmol/L (3.5-5.1)
[2021-01-05] MEDS: ASPIRIN 81 MG TAB.CHEW PO SCH (08:16)
[2021-01-05] MEDS: PANTOPRAZOLE 40 MG INJ VIAL IVP SCH (08:16)
[2021-01-05] MEDS: FUROSEMIDE 40 MG/4 ML VIAL IVP SCH (08:16)
--- NOTE | 2021-01-05 08:18 | NUR ---
PATIENT HAS BEEN RE-SCREENED AND RE-CATEGORIZED HIGH NUTRITION RISK D/T INTUBATION. ANTONELLA SULTANA RD
[2021-01-05] MEDS: RIVAROXABAN 10 MG TAB PO SCH (08:34)
[2021-01-05] MEDS ORDERED: POTASSIUM CHLORIDE 20% 40 MEQ/15 ML UDC GT PRN (10:00)
--- NOTE | 2021-01-05 10:00 | NUR ---
SEEN BY DR. STEWART AT BED SIDE , ORDER RECEIVED.
[2021-01-05] MEDS ORDERED: POTASSIUM CHLORIDE 20% 40 MEQ/15 ML UDC GT SCH ×2 (10:05→14:05)
--- NOTE | 2021-01-05 10:34 | NUR ---
SEEN BY DR. GRULLON NO NEW ORDER RECEIVED.
--- NOTE | 2021-01-05 11:53 | NUR ---
SEEN BY DR. HEATON , NO ORDER RECEIVED BUT HE SAID HE WILL TRY WEANING PARAMETER IN AM.
--- NOTE | 2021-01-05 12:00 | NUR ---
REPOSITION, ORAL CARE GIVEN.
--- NOTE | 2021-01-05 14:03 | NUR ---
DR. STEWART APPROVED INITIATION OF TUBE FEEDINGS.
--- NOTE | 2021-01-05 15:48 | NUR ---
01/05/21 RD INITIAL ASSESSMENT COMPLETED PLEASE REFER TO NUTRITION ASSESSMENT UNDER CARE ACTIVITY FOR ESTIMATED NUTRITIONAL NEEDS. 1. RECOMMEND JEVITY 1.2 @ 60 ML/HR. START AT 10 ML/HR, ADVANCE BY 10 ML/HR Q2H -THIS WILL PROVIDE 1728 KCAL/DAY AND 80 GM PROTEIN/DAY, MEETING 100% OF ESTIMATED NUTRIENT NEEDS 2. RECOMMEND FREE WATER FLUSH OF 85 ML Q6H 3. IF/WHEN PATIENT IS EXTUBATED FOR VENTILATOR, CONSIDER SWALLOWING EVALUATION 4. RD TO FOLLOW-UP 2-3 DAYS, HIGH RISK ANTONELLA SULTANA, DEE
--- NOTE | 2021-01-05 18:00 | NUR ---
SANDOVAL CATH DRAIN DARK URINE HAVEM SOME BLOOD CLOT IN THE SANDOVAL BUT NO HEMATURIA , WILL CONTINUE TO OBSERVE TOTAL URINE 2000ML.
--- NOTE | 2021-01-05 19:06 | NUR ---
SLEEPING V/S WITH IN NORMAL LIMIT, REPORT GIVE TO NATALYA MCCAIN.
--- NOTE | 2021-01-05 19:09 | NUR ---
RESTING COMFORTABLY NO DISTRESS NOTED GOOD CHEST RISE AND AERATION THROUGHOUT BILATERAL LUNG GODOY AIRWAY PATENT
--- NOTE | 2021-01-05 19:30 | NUR ---
ASSUMED ACRE OF PT.INITIAL ASSESSMENT COMPLETED.PT SEDATED.SR ON MONITOR.ORALLY INTUBATED FIO2 25% TV 500 RATE 16 PEEP 5.W/OGT ALREADY IN PLACE.CLAMPED AT THIS TIME.W/PICC LINE TO PATRICIA INTACT W.GOOD BLOOD RETURN TO BOTH PORTS INFUSING IVF NS AT 20ML/HR; PROPOFOL DRIP AT 25MCG/KG/MIN AND FENTANYL DRIP AT 1.5 MCG/KG/HR DRY WT 79KGS.W/PERIPHERAL IV TO LT AC G20,INTACT SALINE FLUSH AND RT F/A G20 INTACT.SALINE FLUSH.W/SANDOVAL CATHETER TO BSD DRAINING SMALL AMT OF DARK PAULETTE COLORED URINE.SKIN INTACT.FLACC 0.SAFETY PRECAUTIONS IN PLACE.CALL LIGHT WITHIN REACH.W/BILATERAL SOFT WRIST RESTRAINTS ALSO NOTED.NO SIGNS OF INJURIES NOTED.
[2021-01-06] VITALS (26 sets, daily range): BP systolic 96–166; BP diastolic 53–107
--- NOTE | 2021-01-06 | NUR ---
ORAL CARE DONE.PT REPOSITIONED.FLACC 0.OGT FEEDING JEVITY 1.2 AT 10ML/HR WITH 85ML WATER FLUSH STARTED
[2021-01-06] MEDS: fentaNYL citrate 1 MG in NACL 0.9% 80 ML IV PRN (01:02)
[2021-01-06] MEDS: NACL 0.9% 1,000 ML IV SCH (01:04)
[2021-01-06] MEDS: PROPOFOL 1000 MG/100 ML PREMIX 100 ML IV PRN (03:24)
--- NOTE | 2021-01-06 03:30 | NUR ---
morning care done.no bm noted this shift.still with small clots noted from smith catheter and slight bleeding from tip of penis.flacc 0, repositioned
[2021-01-06] MEDS: PIPERACILLIN/TAZOBACTAM 3.375 GM in DEXTROSE 5% 50 ML IV SCH ×3 (05:13→20:05)
[2021-01-06 06:22] LABS: BASOPHILS # (AUTO) 0.1 K/uL (0.00-0.22); BASOPHILS % (AUTO) 0.7 % (0.0-2.0); EOSINOPHILS # (AUTO) 0.2 K/uL (0-0.4); EOSINOPHILS % (AUTO) 2.5 % (0.0-4.0); HEMATOCRIT 39.3 % (36-52); HEMOGLOBIN 12.9 g/dL (12.0-18.0); LYMPHOCYTES # (AUTO) 2.2 K/uL (2.0-11.5); LYMPHOCYTES % (AUTO) 22.8 % (20.5-51.1); MEAN CORPUSCULAR HEMOGLOBIN 29 pg (27-31); MEAN CORPUSCULAR HGB CONC 33 g/dL (33-37); MEAN CORPUSCULAR VOLUME 87.4 fL (80-94); MONOCYTES # (AUTO) 0.6 K/uL (0.8-1.0); NEUTROPHILS # (AUTO) 6.7 K/uL (1.8-7.7); PLATELET COUNT (AUTO) 257 K/uL (140-450); RED CELL DISTRIBUTION WIDTH 14.7 % (11.6-13.7); WHITE BLOOD COUNT (AUTO) 9.8 K/uL (4.8-10.8)
--- NOTE | 2021-01-06 06:32 | NUR ---
pts condition remains unchanged. ett to vent fio2 still 25%,pt saturation 100%.flacc 0
[2021-01-06 07:22] LABS: ALBUMIN 2.6 g/dL (3.4-5.0); ANION GAP 11.2 (8-16); CARBON DIOXIDE 28.5 mmol/L (21-32); CREATININE 1.4 mg/dL (0.6-1.3); MAGNESIUM 1.9 mg/dL (1.8-2.4); PHOSPHORUS 3.5 mg/dL (2.5-4.9); POTASSIUM 3.7 mmol/L (3.5-5.1); TOTAL BILIRUBIN 0.9 mg/dL (0.0-1.0)
[2021-01-06] MEDS: FUROSEMIDE 40 MG/4 ML VIAL IVP SCH (07:59)
[2021-01-06] MEDS: ASPIRIN 81 MG TAB.CHEW PO SCH (08:02)
[2021-01-06] MEDS: RIVAROXABAN 10 MG TAB PO SCH (08:02)
[2021-01-06] MEDS: PANTOPRAZOLE 40 MG INJ VIAL IVP SCH (08:02)
--- NOTE | 2021-01-06 08:45 | NUR ---
SEEN BY DR. HEATON AT BEDSIDE ORDER D/C PROPOFOL AND VERSED..PT.RESPONE TO VERBAL COMMAND RT AT BED SIDE.
--- NOTE | 2021-01-06 08:45 | NUR ---
DR. NOHEMI HEATON AT BEDSIDE REVIEWED PATIENT, VENTILATOR AND SEDATION STATUS MD STATES OFF SEDATION WHEN APPROPRIATE PLACE ON CPAP TRIALS PEEP 5cmH2O PS 8cmH2O AFTER 30 MINS DRAW ABG CALL WITH RESULTS
--- NOTE | 2021-01-06 10:20 | NUR ---
PLACED CPAP TRIALS ORDERED PEE 5cmH20 PS 8cmH2O AFTER 1 MIN PATIENT UNABLE TO SUSTAIN SpVt GREATER THAN 200ml INCREASE PS TO [id number] MEASUREMENT OPERATOR TO MONITOR
--- NOTE | 2021-01-06 10:37 | NUR ---
IRRITABLE PATIENT TRYING TO GET UP MOVING IN BED GOOD CHEST RISE AIRWAY PATENT
--- NOTE | 2021-01-06 11:04 | NUR ---
CALLED [facility] KATHI/EXCHANGE [address] DR. NOHEMI HEATON CALL BACK NUMBER GIVEN [phone]
--- NOTE | 2021-01-06 11:08 | NUR ---
CALL BACK FROM DR. NOHEMI HEATON REVIEWED ABG SAMPLE REPORTS, CPAP/PS TRAIL, DIAGNOSTIC MONITORING SATURATION, SPUTUM VIA SUCTIONING AND GAG REFLEX TORBO: EXTUBATE
--- NOTE | 2021-01-06 11:15 | NUR ---
EXTUBATION PROCEDURE Rafa GERBER RCP AND Jostin ANGEL RCP ATTENDING EDUCATION PROVIDED TO PATIENT IN REGARDS TO EXTUBATION PROCEDURE GOOD CHEST RISE DEEP TRACHEAL SUCTION FOR SMALL THIN PALE YELLOW TO HAZY SECRETIONS OROPHARYNGEAL SUCTION FOR COPIOUS SEMI THICK HAZY WITH YELLOW TINGE SECRETONS AIRWAY PATENT FIO2 OF 1000% GIVEN VIA VENTILATOR X 1 MIN DEFLATED CUFF PRESSURE BALLOON FLAT EXTRACTED ENDOTRACHEAL TUBE PLACE ON HUMIDIFIED SUPPLEMENTAL AT 3 LPM VIA NC DUNG/RN NOTIFIED
--- NOTE | 2021-01-06 11:20 | NUR ---
PT. BECOME AGITATED COMBATIVE, SCREAMING. SPLIT ON ANY ONE THAT COME CLOSE. NOTIFIED ORDERED ATIVAN. GIVEN ORDERED,
[2021-01-06] MEDS ORDERED: LORazepam 2 MG/ML VIAL ONE (11:33)
[2021-01-06] MEDS ORDERED: LORazepam 2 MG/ML VIAL IVP PRN (16:35)
[2021-01-06] MEDS: LORazepam 2 MG/ML VIAL IM/IVP PRN ×2 (17:17→23:28)
--- NOTE | 2021-01-06 19:10 | NUR ---
PT. SLEEPING ,REPORT GIVE TO NATALYA MCCAIN.
--- NOTE | 2021-01-06 19:30 | NUR ---
ASSUMED CARE OF PT.INITIAL ASSESSMENT COMPLETED.PT ASLEEP;EASILY AROUSABLE. CONFUSED WHEN AWAKE; KICKING AND TRYING TO PULL LINES, PT WITH BILATERAL SOFT WRIST RESTRAINTS.SR/ST NOTED ON MONITOR.W/PICC LINE DOUBLE LUMEN TO PATRICIA INTACT WITH GOOD BLOOD RETURN TO BOTH PORTS INFUSING NS AT 20ML/HR.PT NPO FOR NOW.W/SANDOVAL CATHETER TO BSD DRAINING SMALL AMT OF LIGHT PAULETTE URINE WITH SOME SMALL BLOOD CLOTS STILL NOTED; BLEEDING FROM TIP OF PENIS STILL NOTED.SKIN REMAINS INTACT.NO PAIN NOTED
--- NOTE | 2021-01-06 21:40 | NUR ---
PHONE CALL TO DR ALATORRE; UPDATED ON PTS PRESENT CONDITION. MADE AWARE PT EXTUBATED IN AM SHIFT.VS STABLE.NO FEEDING AT THIS TIME; ORDERED FOR SWALLOW EVAL IN AM, IVF CHANGED TO D5NS AT 60ML/HR
[2021-01-06] MEDS: DEXT 5% /NACL 0.9% 1,000 ML IV SCH (22:22)
--- NOTE | 2021-01-06 23:28 | NUR ---
pt very agitated; trying to get out of bed even with restraints on, kicking and spitting, ativan administered as ordered.
[2021-01-07] VITALS: BP 118/56
--- NOTE | 2021-01-07 00:35 | NUR ---
PT ASLEEP;NO SIGNS OF DISTRESS NOTED.NO INJURIES NOTED FROM RESTRAINTS.WILL CONTINUE TO CLOSELY MONITOR PT
--- NOTE | 2021-01-07 01:45 | NUR ---
REPORT GIVEN TO STARLA MCCAIN FOR CONTINUITY OF CARE.
--- NOTE | 2021-01-07 02:00 | NUR ---
PT TRANSFERRED TO TELEMETRY UNIT IN STABLE CONDITION.ON 02NC AT 2LPM.MONITOR ATTACHED.SR ON MONITOR.PATRICIA PICC LINE AND SANDOVAL CATHETER ALSO INTACT.
[2021-01-07 02:08] VITALS: BP 130/58
--- NOTE | 2021-01-07 02:10 | NUR ---
RECEIVED PATIENT. HE IS A TRANSFER TO TELE FROM ICU. TELEMETRY BOX 12. VITAL SIGNS CHECK. STARLA DONNELLY RN
[2021-01-07 04:10] VITALS: BP 147/73
[2021-01-07] MEDS: PIPERACILLIN/TAZOBACTAM 3.375 GM in DEXTROSE 5% 50 ML IV SCH ×3 (04:54→21:08)
--- NOTE | 2021-01-07 07:45 | NUR ---
RECEIVED REPORT FROM WASTE HANDLING TECHNICIAN NURSE. PATIENT LYING DOWN IN BED, SLEEPING, NO DISTRESS NOTED. DENIES ANY PAIN. AROUSABLE BY VOICE. AAOX2, INTERMITTENT CONFUSION. ON B/L WRIST RESTRAINTS PATIENT SPITS AND TRIES TO PULL OUT TUBE. SANDOVAL CATHETER IN PLACE. PATRICIA PICC LINE IN PLACE, PATENT, AND INFUSING IVF PER MD ORDERS. SAFETY MEASURES IN PLACE, CALL LIGHT WITHIN REACH. WILL CONTINUE TO MONITOR.
[2021-01-07 08:00] VITALS: BP 136/72
[2021-01-07 09:57] LABS: BASOPHILS % (AUTO) 0.3 % (0.0-2.0); EOSINOPHILS # (AUTO) 0.3 K/uL (0-0.4); EOSINOPHILS % (AUTO) 3.5 % (0.0-4.0); HEMATOCRIT 39.8 % (36-52); HEMOGLOBIN 12.9 g/dL (12.0-18.0); LYMPHOCYTES # (AUTO) 1.9 K/uL (2.0-11.5); LYMPHOCYTES % (AUTO) 23.1 % (20.5-51.1); MEAN CORPUSCULAR HEMOGLOBIN 29 pg (27-31); MEAN CORPUSCULAR HGB CONC 32 g/dL (33-37); MEAN CORPUSCULAR VOLUME 88.3 fL (80-94); MONOCYTES # (AUTO) 0.6 K/uL (0.8-1.0); MONOCYTES % (AUTO) 7.4 % (1.7-9.3); NEUTROPHILS # (AUTO) 5.3 K/uL (1.8-7.7); NEUTROPHILS % (AUTO) 65.7 % (42.2-75.2); PLATELET COUNT (AUTO) 237 K/uL (140-450); RED CELL DISTRIBUTION WIDTH 14.2 % (11.6-13.7); WHITE BLOOD COUNT (AUTO) 8.1 K/uL (4.8-10.8)
[2021-01-07 10:15] LABS: ALBUMIN 2.8 g/dL (3.4-5.0); ANION GAP 8.6 (8-16); CARBON DIOXIDE 30.9 mmol/L (21-32); MAGNESIUM 1.9 mg/dL (1.8-2.4); PHOSPHORUS 3.1 mg/dL (2.5-4.9); POTASSIUM 3.5 mmol/L (3.5-5.1); TOTAL BILIRUBIN 0.6 mg/dL (0.0-1.0)
[2021-01-07] MEDS: FUROSEMIDE 40 MG/4 ML VIAL IVP SCH (10:18)
[2021-01-07] MEDS: PANTOPRAZOLE 40 MG INJ VIAL IVP SCH (10:18)
[2021-01-07] MEDS: ASPIRIN 81 MG TAB.CHEW PO SCH (10:19)
[2021-01-07] MEDS: RIVAROXABAN 10 MG TAB PO SCH (10:19)
--- NOTE | 2021-01-07 10:19 | NUR ---
SCHEDULED MEDICATIONS DUE GIVEN. WILL CONTINUE TO MONITOR.
--- NOTE | 2021-01-07 10:34 | NUR ---
SCHEDULED MEDICATIONS DUE GIVEN. WILL CONTINUE TO MONITOR.
[2021-01-07 12:00] VITALS: BP 123/77
[2021-01-07] MEDS: DEXT 5% /NACL 0.9% 1,000 ML IV SCH (14:20)
--- NOTE | 2021-01-07 14:54 | NUR ---
01/07/21 RD FOLLOW UP COMPLETED PLEASE REFER TO NUTRITION ASSESSMENT UNDER CARE ACTIVITY FOR ESTIMATED NUTRITIONAL NEEDS. 1. CONTINUE PUREE DIET PER MEDICAL MALPRACTICE PARALEGAL 2. RECOMMEND ENSURE BID 3. ENCOURAGE PO INTAKE OVER 75% 4. RD TO FOLLOW-UP 3-5 DAYS, MODERATE RISK ANTONELLA SULTANA, RD
--- NOTE | 2021-01-07 19:51 | NUR ---
GAVE REPORT TO SALVAGE CLERK NURSE FOR CONTINUITY OF CARE. PATIENT IN STABLE CONDITION.
[2021-01-07 20:00] VITALS: BP 91/60
--- NOTE | 2021-01-07 20:00 | NUR ---
RECEIVED BEDSIDE REPORT FROM DAY RN REGARDING THE PT FOR CONTINUITY OF CARE. PATIENT AWAKE BUT CONFUSED, LAYING DOWN IN BED WATCHING TV. NO SIGN AND SYMPTOMS OF DISTRESS NOTED AT THIS TIME. IVF INFUSING ORDERED. FALL PRECAUTION IMPLEMENTED. KEEP REMINDING THE PATIENT NOT TO GET OUT OF BED ON HIS OWN. BED IN LOW POSITION, BED ALARM ON, SIDE RAILS UP X2 AND BREAKS ON. CALL LIGHT WITHIN REACH. WILL CONTINUE POC.
--- NOTE | 2021-01-07 22:00 | NUR ---
SCHEDULED MEDICATIONS GIVEN ORDERED. PATIENT TOLERATED IT WELL. NO ADVERSE DRUG REACTION NOTED WILL CONTINUE TO OBSERVE PATIENT.
--- NOTE | 2021-01-08 02:21 | NUR ---
PATIENT ASLEEP AT THIS TIME. VISIBLE CHEST RISE AND FALL NOTED. WILL CONTINUE OBSERVATION. CALL LIGHT WITHIN REACH. SAFETY MEASURES IN PLACED.
[2021-01-08 04:00] VITALS: BP 91/68
[2021-01-08] MEDS: PIPERACILLIN/TAZOBACTAM 3.375 GM in DEXTROSE 5% 50 ML IV SCH ×2 (05:02→13:20)
--- NOTE | 2021-01-08 06:37 | NUR ---
PATIENT STABLE. NO ACUTE EVENT THROUGHOUT THE NIGHT. NO SIGN AND SYMPTOMS OF DISTRESS NOTED AT THIS TIME. ALL NEEDS ATTENDED. WILL ENDORSE THE PATIENT TO THE ONCOMING RN FOR CONTINUITY OF CARE.
[2021-01-08 06:42] LABS: BASOPHILS % (AUTO) 0.5 % (0.0-2.0); EOSINOPHILS # (AUTO) 0.5 K/uL (0-0.4); EOSINOPHILS % (AUTO) 5.6 % (0.0-4.0); HEMATOCRIT 38.7 % (36-52); HEMOGLOBIN 12.8 g/dL (12.0-18.0); LYMPHOCYTES # (AUTO) 2.4 K/uL (2.0-11.5); LYMPHOCYTES % (AUTO) 27.2 % (20.5-51.1); MEAN CORPUSCULAR HEMOGLOBIN 29 pg (27-31); MEAN CORPUSCULAR HGB CONC 33 g/dL (33-37); MEAN CORPUSCULAR VOLUME 86.4 fL (80-94); MONOCYTES # (AUTO) 0.6 K/uL (0.8-1.0); MONOCYTES % (AUTO) 6.7 % (1.7-9.3); NEUTROPHILS # (AUTO) 5.4 K/uL (1.8-7.7); PLATELET COUNT (AUTO) 228 K/uL (140-450); RED BLOOD CELL COUNT(AUTO) 4.48 MIL/uL (4.20-6.10); RED CELL DISTRIBUTION WIDTH 14.2 % (11.6-13.7); WHITE BLOOD COUNT (AUTO) 8.9 K/uL (4.8-10.8)
[2021-01-08 07:24] LABS: ALBUMIN 2.8 g/dL (3.4-5.0); ANION GAP 9.3 (8-16); CARBON DIOXIDE 30.1 mmol/L (21-32); CREATININE 1.1 mg/dL (0.6-1.3); MAGNESIUM 1.8 mg/dL (1.8-2.4); PHOSPHORUS 3.1 mg/dL (2.5-4.9); POTASSIUM 3.4 mmol/L (3.5-5.1); TOTAL BILIRUBIN 0.4 mg/dL (0.0-1.0)
--- NOTE | 2021-01-08 07:35 | NUR ---
ENDORSED PATIENT TO DAY RN FOR CONTINUITY OF CARE. PATIENT STABLE. SIGNING OFF.
[2021-01-08 08:00] VITALS: BP 100/74
--- NOTE | 2021-01-08 08:00 | NUR ---
NURSE REPORT REPORT OBTAINED FROM NIGHT NURSE GUANAKITO DUNCAN AT 0735 AND THIS NURSE ASSUMED CARE OF PATIENT. VSS. AFEB. NO C/O PAIN OR DISCOMFORT. IV D5 1/2NS INFUSING AT 50 ML/HR INTO PATRICIA PICC. SANDOVAL INTACT AND DRAINING DARK PAULETTE URINE.
[2021-01-08] MEDS: RIVAROXABAN 10 MG TAB PO SCH (09:33)
[2021-01-08] MEDS: PANTOPRAZOLE 40 MG INJ VIAL IVP SCH (09:33)
[2021-01-08] MEDS: FUROSEMIDE 40 MG/4 ML VIAL IVP SCH (09:34)
[2021-01-08] MEDS: ASPIRIN 81 MG TAB.CHEW PO SCH (09:34)
[2021-01-08] MEDS ORDERED: METO25TE2 PO (10:35)
[2021-01-08] MEDS ORDERED: RIVA20TA PO (10:35)
[2021-01-08] MEDS ORDERED: FURO-572 PO (10:35)
[2021-01-08] MEDS ORDERED: ATOR20TA PO (10:35)
[2021-01-08 12:00] VITALS: BP 103/71
[2021-01-08 16:00] VITALS: BP 104/82
[2021-01-08 17:49] VITALS: BP 104/82
--- NOTE | 2021-01-08 20:50 | NUR ---
NURSE DISCHARGE NOTES D/C INSTRUCTIONS GIVEN TO PATIENT AND PATIENT VERBALIZED UNDERSTANDING. PICC LINE REMOVED WITH CATHETER INTACT. D/C VIA W/C TO SISTER CAR.
== END 2021-01-08 20:50 | DRG 190 ==
LOC: MED 21:50 → MTU 01-01 00:57 → MIC 01-04 07:33 → MTU 01-07 01:57
PROVIDERS: ADMIT Hospitalist; ATTEND Hospitalist
PROC: 5A1945Z Respiratory Ventilation, 24-96 Consecutive Hours (ICD-10-PCS; principal; 2021-01-04)
PROC: 0BH17EZ Insertion of Endotracheal Airway into Trachea, Via Natural or Artificial Opening (ICD-10-PCS; 2021-01-04)
PROC: 5A12012 Performance of Cardiac Output, Single, Manual (ICD-10-PCS; 2021-01-04)
PROC: 02HV33Z Insertion of Infusion Device into Superior Vena Cava, Percutaneous Approach (ICD-10-PCS; 2021-01-04)
DX: I21.4 Non-ST elevation (NSTEMI) myocardial infarction (principal); J96.21 Acute and chronic respiratory failure with hypoxia; G92 Toxic encephalopathy; I50.43 Acute on chronic combined systolic (congestive) and diastolic (congestive) heart failure; I46.9 Cardiac arrest, cause unspecified; F15.90 Other stimulant use, unspecified, uncomplicated; E87.1 Hypo-osmolality and hyponatremia; I16.0 Hypertensive urgency; Z20.822 Contact with and (suspected) exposure to COVID-19; T43.625A Adverse effect of amphetamines, initial encounter; I11.0 Hypertensive heart disease with heart failure; E80.6 Other disorders of bilirubin metabolism; R74.01 Elevation of levels of liver transaminase levels; I42.9 Cardiomyopathy, unspecified; E86.0 Dehydration; Z79.84 Long term (current) use of oral hypoglycemic drugs; Z79.899 Other long term (current) drug therapy; Z79.2 Long term (current) use of antibiotics; Z91.19 Patient's noncompliance with other medical treatment and regimen; Z91.14 Patient's other noncompliance with medication regimen; Y92.89 Other specified places as the place of occurrence of the external cause
CPT/HCPCS: 36415; 36600; 70450; 71045; 80048; 80053; 80305; 81003; 82803; 83735; 83880; 84100; 84484; 85025; 87040; 87070; 87081; 87205; 89220; 92610; 92950; 93005; 93308; 94002; 94003; 99285; C9113; J1940; J2060; J2250; J2543; J2704; J3010; J3490; J7060; Q0092; U0003

== ENCOUNTER 2023-01-12 11:56 | Inpatient (IN) | payer MEDICAID ==
[~2023-01-12] VITALS: Ht 172.7 cm; Wt 97.1 kg
[2023-01-12 12:03] VITALS: BP 122/82; PULSE 100; RESP 20; TEMP 98.4; O2SAT 98
[2023-01-12 14:28] LABS: BASOPHILS # (AUTO) 0.1 K/uL (0.00-0.22); BASOPHILS % (AUTO) 0.7 % (0.0-2.0); HEMATOCRIT 33.3 % (36-52); HEMOGLOBIN 11.3 g/dL (12.0-18.0); LYMPHOCYTES # (AUTO) 1.9 K/uL (2.0-11.5); LYMPHOCYTES % (AUTO) 10.4 % (20.5-51.1); MEAN CORPUSCULAR HEMOGLOBIN 28 pg (27-31); MEAN CORPUSCULAR HGB CONC 34 g/dL (33-37); MEAN CORPUSCULAR VOLUME 81.4 fL (80-94); MONOCYTES # (AUTO) 1.7 K/uL (0.8-1.0); NEUTROPHILS # (AUTO) 14.7 K/uL (1.8-7.7); NEUTROPHILS % (AUTO) 79.9 % (42.2-75.2); PLATELET COUNT (AUTO) 260 K/uL (140-450); RED BLOOD CELL COUNT(AUTO) 4.09 MIL/uL (4.20-6.10); RED CELL DISTRIBUTION WIDTH 13.7 % (11.6-13.7); WHITE BLOOD COUNT (AUTO) 18.3 K/uL (4.8-10.8)
[2023-01-12 14:59] LABS: ALBUMIN 4.6 g/dL (3.4-5.0); ANION GAP 25.3 (8-16); CALCIUM 6.2 mg/dL (8.5-10.1); CARBON DIOXIDE 16.9 mmol/L (21-32); POTASSIUM 4.2 mmol/L (3.5-5.1); TOTAL BILIRUBIN 1.7 mg/dL (0.0-1.0); TOTAL PROTEIN, SERUM 8.8 g/dL (6.4-8.2)
[2023-01-12] MEDS ORDERED: NACL 0.9% 2,000 ML IV ONE (15:25)
[2023-01-12 16:24] LABS: CREATINE KINASE, TOTAL 5388 U/L (39-308)
[2023-01-12] MEDS ORDERED: NACL 0.9% 1,000 ML IV ONE (17:15)
[2023-01-12] MEDS ORDERED: ONDANSETRON 4 MG/2 ML VIAL IVP PRN (17:50)
[2023-01-12] MEDS ORDERED: NACL 0.9% 1,000 ML IV SCH (17:50)
[2023-01-12] MEDS ORDERED: ACETAMINOPHEN 325 MG TAB PO PRN (17:50)
[2023-01-12] MEDS ORDERED: LORazepam 2 MG/ML VIAL IVP ONE (18:20)
[2023-01-12] MEDS ORDERED: HALOPERIDOL IM 5 MG/ML VIAL ONE (18:23)
[2023-01-12] MEDS ORDERED: LORazepam 2 MG/ML VIAL IVP PRN ×2 (18:35→19:50)
[2023-01-12] MEDS ORDERED: ALBUTEROL SULFATE/IPRATROPIU 3 ML SOL IH PRN (18:45)
[2023-01-12 18:59] VITALS: O2SAT 92
[2023-01-12 19:08] LABS: APPEARANCE,URINE CLEAR (CLEAR); BILIRUBIN,URINE 1+ (NEGATIVE); BLOOD, URINE 3+ (NEGATIVE); COLOR,URINE YELLOW (YELLOW); LEUKOCYTE ESTERASE ,URINE NEGATIVE (NEGATIVE); NITRITE, URINE NEGATIVE (NEGATIVE); PH,URINE 5.5 (5.0-9.0); PROTEIN,URINE 1+ (NEGATIVE); UGLUCOSE NEGATIVE (NEGATIVE); UROBILINOGEN,URINE 0.2 EU/dL (0.2 - 1)
[2023-01-12] MEDS ORDERED: MORPHINE SULFATE 2 MG/ML SYR IVP PRN (19:15)
[2023-01-12 19:22] LABS: RBC,URINE TOO NUMEROUS TO COUN /HPF (0-5)
[2023-01-12 19:23] LABS: AMPHETAMINE, URINE POSITIVE ng/ml (NEG <=1000); BACTERIA,URINE 1+ /HPF (None Seen); BARBITURATE, URINE NEGATIVE ng/ml (NEG <=200); BENZODIAZEPINE, URINE NEGATIVE ng/mL (NEG <=200); CANNABINOID, URINE NEGATIVE ng/mL (NEG <=50); COCAINE, URINE NEGATIVE ng/mL (NEG <=300); OPIATE, URINE NEGATIVE ng/mL (NEG <=2000); PHENCYCLIDINE SCREEN,URINE NEGATIVE ng/mL (NEG <=25); SQUAMOUS EPITHELIAL CELL,UR None Seen /LPF (0-3 (FEW))
[2023-01-12 19:30] LABS: ICTOTEST NEGATIVE (NEGATIVE)
[2023-01-12 19:35] VITALS: PULSE 68; RESP 18; O2SAT 98
[2023-01-12] MEDS ORDERED: HALOPERIDOL IM 5 MG/ML VIAL IM ONE ×2 (19:50→23:00)
[2023-01-12 20:06] VITALS: PULSE 66; RESP 18; O2SAT 98
[2023-01-12] MEDS: NACL 0.9% 1,000 ML IV SCH (20:43)
[2023-01-12] MEDS ORDERED: NACL 0.9% IV ONE ×2 (21:25)
[2023-01-12] MEDS ORDERED: CALCIUM CHLORIDE IV ONE ×2 (21:25)
[2023-01-12] MEDS ORDERED: CALCIUM CHLORIDE 10% 100 MG/ML SYR IVP ONE ×2 (22:08→22:17)
[2023-01-13] VITALS (12 sets, daily range): BP systolic 110–142; BP diastolic 66–81; PULSE 65–97; RESP 12–20; TEMP 97–98.2; O2SAT 93–98
[2023-01-13] MEDS: NACL 0.9% 1,000 ML IV SCH ×2 (02:21→06:46)
[2023-01-13 06:19] LABS: BASOPHILS % (AUTO) 0.2 % (0.0-2.0); EOSINOPHILS # (AUTO) 0.1 K/uL (0-0.4); EOSINOPHILS % (AUTO) 0.8 % (0.0-4.0); HEMATOCRIT 34.9 % (36-52); HEMOGLOBIN 11.6 g/dL (12.0-18.0); LYMPHOCYTES # (AUTO) 1.2 K/uL (2.0-11.5); LYMPHOCYTES % (AUTO) 10.7 % (20.5-51.1); MEAN CORPUSCULAR HEMOGLOBIN 27 pg (27-31); MEAN CORPUSCULAR HGB CONC 33 g/dL (33-37); MEAN CORPUSCULAR VOLUME 81.5 fL (80-94); MONOCYTES # (AUTO) 0.8 K/uL (0.8-1.0); MONOCYTES % (AUTO) 7.2 % (1.7-9.3); NEUTROPHILS # (AUTO) 9.2 K/uL (1.8-7.7); NEUTROPHILS % (AUTO) 81.1 % (42.2-75.2); PLATELET COUNT (AUTO) 203 K/uL (140-450); RED BLOOD CELL COUNT(AUTO) 4.28 MIL/uL (4.20-6.10); RED CELL DISTRIBUTION WIDTH 13.9 % (11.6-13.7); WHITE BLOOD COUNT (AUTO) 11.3 K/uL (4.8-10.8)
[2023-01-13 06:53] LABS: ANION GAP 21.6 (8-16); CALCIUM 7.2 mg/dL (8.5-10.1); CARBON DIOXIDE 16.3 mmol/L (21-32); CREATININE 2.6 mg/dL (0.6-1.3); POTASSIUM 3.9 mmol/L (3.5-5.1)
[2023-01-13 07:01] LABS: ALBUMIN 3.7 g/dL (3.4-5.0); BILIRUBIN,DIRECT 0.4 mg/dL (0.0-0.3); TOTAL BILIRUBIN 1.4 mg/dL (0.0-1.0); TOTAL PROTEIN, SERUM 7.7 g/dL (6.4-8.2)
[2023-01-13 07:07] LABS: CREATINE KINASE, TOTAL 4170 U/L (39-308); MAGNESIUM 2.6 mg/dL (1.8-2.4); PHOSPHORUS 7.6 mg/dL (2.5-4.9)
[2023-01-13 07:24] LABS: INR 0.95 (0.8-1.2); PARTIAL THROMBOPLASTIN TIME 28.4 secs (22-35.6)
[2023-01-13] MEDS: SODIUM BICARBONATE 8.4% 100 MEQ in DEXT 5% / NACL 0.45% 1,000 ML IV SCH ×2 (10:13→23:42)
[2023-01-14] VITALS (10 sets, daily range): BP systolic 125–158; BP diastolic 75–97; PULSE 62–94; RESP 12–20; TEMP 97.3–98.5; O2SAT 95–100
[2023-01-14 06:58] LABS: ALANINE AMINOTRANSFERASE 41 U/L (12-78); ALBUMIN 3.3 g/dL (3.4-5.0); ALKALINE PHOSPHATASE 84 U/L (50-136); ASPARTATE AMINOTRANSFERASE 28 U/L (15-37); CALCIUM 7.5 mg/dL (8.5-10.1); CARBON DIOXIDE 21.7 mmol/L (21-32); CHLORIDE 107 mmol/L (98-107); CREATINE KINASE, TOTAL 1260 U/L (39-308); GFR ARICAN-AMERICAN 99 mL/min (>90); GFR NON ARICAN-AMERICAN 82 mL/min (>90); GLUCOSE 130 mg/dL (74-106); POTASSIUM 3.7 mmol/L (3.5-5.1); SODIUM SERUM 142 mmol/L (136-145); TOTAL PROTEIN, SERUM 7.6 g/dL (6.4-8.2); UREA NITROGEN, BLOOD 49 mg/dL (7-18)
[2023-01-14] MEDS: SODIUM BICARBONATE 8.4% 100 MEQ in DEXT 5% / NACL 0.45% 1,000 ML IV SCH (14:49)
[2023-01-14] MEDS: carvediloL 3.125 MG TAB PO SCH (21:06)
[2023-01-15 06:15] LABS: BASOPHILS % (AUTO) 0.4 % (0.0-2.0); EOSINOPHILS # (AUTO) 0.2 K/uL (0-0.4); EOSINOPHILS % (AUTO) 3.3 % (0.0-4.0); HEMATOCRIT 31.8 % (36-52); HEMOGLOBIN 10.9 g/dL (12.0-18.0); LYMPHOCYTES # (AUTO) 2.3 K/uL (2.0-11.5); LYMPHOCYTES % (AUTO) 33.1 % (20.5-51.1); MEAN CORPUSCULAR HEMOGLOBIN 28 pg (27-31); MEAN CORPUSCULAR HGB CONC 34 g/dL (33-37); MEAN CORPUSCULAR VOLUME 81.3 fL (80-94); MONOCYTES # (AUTO) 0.6 K/uL (0.8-1.0); MONOCYTES % (AUTO) 9.2 % (1.7-9.3); NEUTROPHILS # (AUTO) 3.7 K/uL (1.8-7.7); PLATELET COUNT (AUTO) 218 K/uL (140-450); RED BLOOD CELL COUNT(AUTO) 3.92 MIL/uL (4.20-6.10); RED CELL DISTRIBUTION WIDTH 13.7 % (11.6-13.7); WHITE BLOOD COUNT (AUTO) 6.8 K/uL (4.8-10.8)
[2023-01-15 06:41] LABS: CALCIUM 7.8 mg/dL (8.5-10.1); CARBON DIOXIDE 28.7 mmol/L (21-32); CREATININE 0.8 mg/dL (0.6-1.3); POTASSIUM 3.7 mmol/L (3.5-5.1)
[2023-01-15 06:45] LABS: CREATINE KINASE, TOTAL 513 U/L (39-308)
[2023-01-15 06:46] LABS: MAGNESIUM 2.1 mg/dL (1.8-2.4); PHOSPHORUS 1.9 mg/dL (2.5-4.9)
[2023-01-15 07:53] VITALS: PULSE 85
[2023-01-15 07:54] VITALS: PULSE 79; RESP 20; O2SAT 99
[2023-01-15] MEDS ORDERED: MAG SULF 2000 MG/WATER PREMIX 50 ML IV PRN (08:00)
[2023-01-15] MEDS: lisinopriL 5 MG TAB PO SCH (08:57)
[2023-01-15] MEDS: carvediloL 3.125 MG TAB PO SCH (08:57)
[2023-01-15] MEDS ORDERED: ACETAMINOPHEN 325 MG TAB PO PRN (13:15)
[2023-01-15] MEDS ORDERED: LORazepam 2 MG/ML VIAL IVP PRN (13:15)
[2023-01-15] MEDS ORDERED: POTASSIUM CHLORIDE 10 MEQ TABER PO PRN (13:15)
[2023-01-15] MEDS ORDERED: DOCUSATE SODIUM 100 MG GELCAP PO PRN (13:15)
[2023-01-15] MEDS: SODIUM BICARBONATE 8.4% 100 MEQ in DEXT 5% / NACL 0.45% 1,000 ML IV SCH (16:06)
[2023-01-15 19:00] VITALS: O2SAT 99
[2023-01-15 20:00] VITALS: PULSE 78; RESP 18; O2SAT 97
[2023-01-15] MEDS: carvediloL 6.25 MG TAB PO SCH (20:09)
[2023-01-16 06:21] LABS: BASOPHILS % (AUTO) 0.3 % (0.0-2.0); EOSINOPHILS # (AUTO) 0.4 K/uL (0-0.4); EOSINOPHILS % (AUTO) 5.3 % (0.0-4.0); HEMATOCRIT 31.2 % (36-52); HEMOGLOBIN 10.7 g/dL (12.0-18.0); LYMPHOCYTES # (AUTO) 2.3 K/uL (2.0-11.5); LYMPHOCYTES % (AUTO) 31.5 % (20.5-51.1); MEAN CORPUSCULAR HEMOGLOBIN 28 pg (27-31); MEAN CORPUSCULAR HGB CONC 34 g/dL (33-37); MEAN CORPUSCULAR VOLUME 81.4 fL (80-94); MONOCYTES # (AUTO) 0.5 K/uL (0.8-1.0); MONOCYTES % (AUTO) 7.3 % (1.7-9.3); NEUTROPHILS # (AUTO) 4.1 K/uL (1.8-7.7); NEUTROPHILS % (AUTO) 55.6 % (42.2-75.2); PLATELET COUNT (AUTO) 242 K/uL (140-450); RED BLOOD CELL COUNT(AUTO) 3.83 MIL/uL (4.20-6.10); RED CELL DISTRIBUTION WIDTH 13.5 % (11.6-13.7); WHITE BLOOD COUNT (AUTO) 7.4 K/uL (4.8-10.8)
[2023-01-16 06:32] LABS: CALCIUM 8.5 mg/dL (8.5-10.1); CARBON DIOXIDE 29.9 mmol/L (21-32); CREATININE 0.7 mg/dL (0.6-1.3); POTASSIUM 3.9 mmol/L (3.5-5.1)
[2023-01-16 06:40] LABS: MAGNESIUM 1.6 mg/dL (1.8-2.4); PHOSPHORUS 2.2 mg/dL (2.5-4.9)
[2023-01-16 07:46] VITALS: O2SAT 97
[2023-01-16] MEDS: lisinopriL 5 MG TAB PO SCH (09:58)
[2023-01-16] MEDS: carvediloL 6.25 MG TAB PO SCH (09:58)
[2023-01-16 11:11] VITALS: BP 140/64; RESP 18; TEMP 98
[2023-01-16] MEDS ORDERED: carvediloL 12.5 MG TAB PO SCH (21:00)
== END 2023-01-16 15:54 | disposition home or self-care (01) | DRG 720 ==
LOC: MED 11:56 → MTU 17:52
PROVIDERS: ADMIT Internal Medicine; ATTEND Internal Medicine
DX: A41.9 Sepsis, unspecified organism (principal); J96.01 Acute respiratory failure with hypoxia; N17.0 Acute kidney failure with tubular necrosis; G92.8 Other toxic encephalopathy; I42.7 Cardiomyopathy due to drug and external agent; I11.0 Hypertensive heart disease with heart failure; J18.9 Pneumonia, unspecified organism; E87.1 Hypo-osmolality and hyponatremia; E83.51 Hypocalcemia; I50.22 Chronic systolic (congestive) heart failure; T43.651A Poisoning by methamphetamines accidental (unintentional), initial encounter; M62.82 Rhabdomyolysis; E86.0 Dehydration; N39.0 Urinary tract infection, site not specified; I25.10 Atherosclerotic heart disease of native coronary artery without angina pectoris; S42.002A Fracture of unspecified part of left clavicle, initial encounter for closed fracture; X58.XXXA Exposure to other specified factors, initial encounter; F15.10 Other stimulant abuse, uncomplicated; Z91.148 Patient's other noncompliance with medication regimen for other reason; Y92.89 Other specified places as the place of occurrence of the external cause; Y93.89 Activity, other specified; Y99.8 Other external cause status
CPT/HCPCS: 36415; 71045; 73030; 80048; 80053; 80076; 80305; 81001; 82550; 82553; 83605; 83690; 83735; 83880; 84100; 85025; 85610; 85730; 87040; 87081; 87086; 96372; 96374; 96375; 97116; 97163-GP; 97530; 99285; J0696; J1630; J1644; J2060; J3475; J3490; J7060

== ENCOUNTER 2023-04-05 17:04 | Inpatient (IN) | payer MEDICAID ==
[~2023-04-05] VITALS: Ht 167.6 cm; Wt 81.6 kg
[2023-04-05 17:14] VITALS: BP 152/118; PULSE 102; RESP 20; TEMP 98.6; O2SAT 98
[2023-04-05 19:06] LABS: FLU A ANTIGEN negative (NEGATIVE); FLU B ANTIGEN NEGATIVE (NEGATIVE)
[2023-04-05 21:16] LABS: BASOPHILS # (AUTO) 0.1 K/uL (0.00-0.22); BASOPHILS % (AUTO) 0.7 % (0.0-2.0); EOSINOPHILS % (AUTO) 0.4 % (0.0-4.0); HEMATOCRIT 41.4 % (36-52); HEMOGLOBIN 13.5 g/dL (12.0-18.0); MEAN CORPUSCULAR HEMOGLOBIN 28 pg (27-31); MEAN CORPUSCULAR HGB CONC 33 g/dL (33-37); MEAN CORPUSCULAR VOLUME 84.3 fL (80-94); MONOCYTES # (AUTO) 0.6 K/uL (0.8-1.0); MONOCYTES % (AUTO) 5.2 % (1.7-9.3); NEUTROPHILS # (AUTO) 7.4 K/uL (1.8-7.7); NEUTROPHILS % (AUTO) 66.7 % (42.2-75.2); PLATELET COUNT (AUTO) 219 K/uL (140-450); RED CELL DISTRIBUTION WIDTH 13.9 % (11.6-13.7); WHITE BLOOD COUNT (AUTO) 11.1 K/uL (4.8-10.8)
[2023-04-05 21:35] LABS: ALANINE AMINOTRANSFERASE 110 U/L (12-78); ALBUMIN 3.7 g/dL (3.4-5.0); ALKALINE PHOSPHATASE 114 U/L (50-136); ANION GAP 12.1 (8-16); ASPARTATE AMINOTRANSFERASE 99 U/L (15-37); CALCIUM 8.6 mg/dL (8.5-10.1); CARBON DIOXIDE 28.4 mmol/L (21-32); CHLORIDE 99 mmol/L (98-107); CREATININE 1.1 mg/dL (0.6-1.3); GFR ARICAN-AMERICAN 89 mL/min (>90); GFR NON ARICAN-AMERICAN 73 mL/min (>90); GLUCOSE 100 mg/dL (74-106); POTASSIUM 4.5 mmol/L (3.5-5.1); SODIUM SERUM 135 mmol/L (136-145); TOTAL BILIRUBIN 1.2 mg/dL (0.0-1.0); TOTAL PROTEIN, SERUM 7.8 g/dL (6.4-8.2); UREA NITROGEN, BLOOD 23 mg/dL (7-18)
[2023-04-05 21:36] LABS: INR 1.09 (0.8-1.2); PARTIAL THROMBOPLASTIN TIME 25.9 secs (22-35.6); PROTHROMBIN TIME 11.4 secs (10.8-13.4)
[2023-04-05] MEDS ORDERED: FUROSEMIDE 40 MG/4 ML VIAL IVP ONE (21:40)
[2023-04-05] MEDS ORDERED: ASPIRIN 325 MG TAB PO ONE (21:40)
[2023-04-05 22:10] VITALS: O2SAT 98
[2023-04-05] MEDS ORDERED: MORPHINE SULFATE 4 MG/ML SYR IVP PRN (23:35)
[2023-04-05] MEDS ORDERED: ACETAMINOPHEN 325 MG TAB PO PRN (23:35)
[2023-04-05] MEDS ORDERED: ALBUTEROL 0.083% 2.5 MG/3 ML NEBU INH PRN (23:35)
[2023-04-05] MEDS ORDERED: HYDROcodone/APAP 5/325 MG 1 TAB TAB PO PRN (23:35)
[2023-04-05] MEDS ORDERED: IPRATROPIUM 0.02% 0.5 MG/2.5 ML NEBU INH PRN (23:35)
[2023-04-05 23:55] VITALS: PULSE 98; RESP 20; O2SAT 98
[2023-04-06] VITALS (14 sets, daily range): BP systolic 112–142; BP diastolic 81–101; PULSE 74–97; RESP 18–20; TEMP 97.6–98.1; O2SAT 95–98
[2023-04-06 04:16] LABS: BASOPHILS % (AUTO) 0.4 % (0.0-2.0); EOSINOPHILS # (AUTO) 0.1 K/uL (0-0.4); EOSINOPHILS % (AUTO) 0.7 % (0.0-4.0); HEMOGLOBIN 12.9 g/dL (12.0-18.0); LYMPHOCYTES # (AUTO) 2.5 K/uL (2.0-11.5); LYMPHOCYTES % (AUTO) 26.9 % (20.5-51.1); MEAN CORPUSCULAR HEMOGLOBIN 28 pg (27-31); MEAN CORPUSCULAR HGB CONC 33 g/dL (33-37); MEAN CORPUSCULAR VOLUME 83.9 fL (80-94); MONOCYTES # (AUTO) 0.5 K/uL (0.8-1.0); MONOCYTES % (AUTO) 5.7 % (1.7-9.3); NEUTROPHILS # (AUTO) 6.2 K/uL (1.8-7.7); NEUTROPHILS % (AUTO) 66.3 % (42.2-75.2); PLATELET COUNT (AUTO) 214 K/uL (140-450); RED BLOOD CELL COUNT(AUTO) 4.64 MIL/uL (4.20-6.10); RED CELL DISTRIBUTION WIDTH 13.8 % (11.6-13.7); WHITE BLOOD COUNT (AUTO) 9.4 K/uL (4.8-10.8)
[2023-04-06 04:30] LABS: ALBUMIN 3.2 g/dL (3.4-5.0); ANION GAP 8.7 (8-16); CALCIUM 8.2 mg/dL (8.5-10.1); CARBON DIOXIDE 30.8 mmol/L (21-32); CREATININE 1.1 mg/dL (0.6-1.3); POTASSIUM 3.5 mmol/L (3.5-5.1); TOTAL BILIRUBIN 1.1 mg/dL (0.0-1.0)
[2023-04-06] MEDS ORDERED: HEPARIN PER PHARMACY MC PRN (07:30)
[2023-04-06] MEDS: FUROSEMIDE 40 MG/4 ML VIAL IVP SCH ×2 (08:56→21:43)
[2023-04-06] MEDS: METOPROLOL SUCCINATE 50 MG TABER PO SCH (08:56)
[2023-04-06] MEDS: lisinopriL 5 MG TAB PO SCH (08:57)
[2023-04-06] MEDS: hePARIN / DEXT 5% PREMIX 250 ML IV SCH ×3 (10:00→23:21)
[2023-04-06] MEDS ORDERED: ATORVASTATIN 20 MG TAB PO SCH (21:00)
[2023-04-07] VITALS: BP 102/75; PULSE 58; PULSE 88; RESP 18; TEMP 97.5; O2SAT 99
[2023-04-07 04:00] VITALS: BP 114/85; PULSE 82; PULSE 99; RESP 18; TEMP 96.8; O2SAT 97
[2023-04-07 05:49] LABS: BASOPHILS # (AUTO) 0.1 K/uL (0.00-0.22); BASOPHILS % (AUTO) 0.6 % (0.0-2.0); EOSINOPHILS # (AUTO) 0.3 K/uL (0-0.4); EOSINOPHILS % (AUTO) 3.1 % (0.0-4.0); HEMATOCRIT 41.4 % (36-52); HEMOGLOBIN 13.8 g/dL (12.0-18.0); LYMPHOCYTES # (AUTO) 2.6 K/uL (2.0-11.5); LYMPHOCYTES % (AUTO) 26.6 % (20.5-51.1); MEAN CORPUSCULAR HEMOGLOBIN 28 pg (27-31); MEAN CORPUSCULAR HGB CONC 33 g/dL (33-37); MEAN CORPUSCULAR VOLUME 83.5 fL (80-94); MONOCYTES # (AUTO) 0.6 K/uL (0.8-1.0); MONOCYTES % (AUTO) 5.9 % (1.7-9.3); NEUTROPHILS # (AUTO) 6.2 K/uL (1.8-7.7); NEUTROPHILS % (AUTO) 63.8 % (42.2-75.2); PLATELET COUNT (AUTO) 199 K/uL (140-450); RED BLOOD CELL COUNT(AUTO) 4.96 MIL/uL (4.20-6.10); RED CELL DISTRIBUTION WIDTH 13.4 % (11.6-13.7); WHITE BLOOD COUNT (AUTO) 9.7 K/uL (4.8-10.8)
[2023-04-07] MEDS: hePARIN / DEXT 5% PREMIX 250 ML IV SCH ×3 (06:27→14:40)
[2023-04-07 06:38] LABS: ALBUMIN 3.1 g/dL (3.4-5.0); ANION GAP 10.7 (8-16); CALCIUM 8.1 mg/dL (8.5-10.1); CARBON DIOXIDE 31.5 mmol/L (21-32); CREATININE 1.1 mg/dL (0.6-1.3); POTASSIUM 3.2 mmol/L (3.5-5.1); TOTAL BILIRUBIN 0.9 mg/dL (0.0-1.0); TOTAL PROTEIN, SERUM 6.9 g/dL (6.4-8.2)
[2023-04-07 08:00] VITALS: BP 133/94; PULSE 82; RESP 18; TEMP 98.1; O2SAT 95
[2023-04-07] MEDS ORDERED: ONDANSETRON 4 MG/2 ML VIAL IVP PRN (08:25)
[2023-04-07] MEDS ORDERED: ZOLPIDEM 10 MG TAB PO PRN (08:25)
[2023-04-07] MEDS ORDERED: MAG SULF 2000 MG/WATER PREMIX 50 ML IV PRN (08:25)
[2023-04-07] MEDS ORDERED: POTASSIUM CHLORIDE 10 MEQ TABER PO PRN (08:25)
[2023-04-07] MEDS: lisinopriL 5 MG TAB PO SCH (09:21)
[2023-04-07] MEDS: METOPROLOL SUCCINATE 50 MG TABER PO SCH (09:22)
[2023-04-07] MEDS: FUROSEMIDE 40 MG/4 ML VIAL IVP SCH (09:55)
[2023-04-07] MEDS ORDERED: BENZONATATE 100 MG CAPLF PO PRN (11:45)
[2023-04-07] MEDS ORDERED: BENZ100C6 PO (13:06)
[2023-04-07] MEDS ORDERED: LISI5TAB24 PO (13:06)
[2023-04-07] MEDS ORDERED: FURO40TA9 PO (13:06)
[2023-04-07 16:44] VITALS: BP 109/73; PULSE 62; RESP 19; TEMP 97.8
[2023-04-08] MEDS ORDERED: FUROSEMIDE 40 MG TAB PO SCH (09:00)
[2023-04-08] MEDS ORDERED: POTASSIUM CHLORIDE 10 MEQ TABER PO SCH (09:00)
== END 2023-04-07 17:45 | disposition home or self-care (01) | DRG 194 ==
LOC: MED 17:04 → MMU 23:37 → MTU 04-06 04:39
PROVIDERS: ADMIT Family Medicine; ATTEND Family Medicine
DX: I11.0 Hypertensive heart disease with heart failure (principal); I21.A1 Myocardial infarction type 2; I42.7 Cardiomyopathy due to drug and external agent; I50.23 Acute on chronic systolic (congestive) heart failure; Y90.9 Presence of alcohol in blood, level not specified; F10.10 Alcohol abuse, uncomplicated; Z20.822 Contact with and (suspected) exposure to COVID-19; I25.10 Atherosclerotic heart disease of native coronary artery without angina pectoris; F15.10 Other stimulant abuse, uncomplicated; Z91.148 Patient's other noncompliance with medication regimen for other reason; Y92.89 Other specified places as the place of occurrence of the external cause; E87.6 Hypokalemia
CPT/HCPCS: 36415; 71045; 80053; 83880; 84484; 85025; 85610; 85730; 87081; 93005; 96374; 99285; J1644; J1940; J2270